=== PATIENT | male | born 1975 | race Caucasian/White ===

== ENCOUNTER 2017-01-16 17:58 | Emergency (ER) | payer OTHER ==
--- NOTE | 2017-01-16 18:30 | PHYS DOC ---
Past Medical History Past Medical History: Diabetes-Type II Adult General Chief Complaint Chief Complaint: UPPER EXTREMITY SWELLING [facility] HPI Patient is a 41 year old male presents to the emergency department with complaints of swelling to the left upper extremity. He states that 3 days ago he developed swelling over the distal tricep region, no known injury. He states that as the three-day period has progressed he has developed swelling to the wrist of the left upper extremity. He denies injury, denies numbness, tingling, radiation of pain, he states that he has range of motion limited secondary to the swelling but notes it is not painful. Patient states that he was seen at the urgent care Center and advised to come to the emergency department for further evaluation and treatment. Patient reports he is a type II diabetic but has not been taking any medication since 2009. He states his initial diagnosis of type 2 diabetes was in 2003. Patient states he quit taking medicine 7 years ago because his doctor was in a dispute with . Patient states he has not followed up nor had medical treatment for his diabetes since that time. He denies dizziness, nausea , vomiting, polyuria, polydipsia, polyphagia. Review of Systems Review of Systems Constitutional: Denies fever or chills [] Eyes: Denies change in visual acuity, redness, or eye pain [] HENT: Denies nasal congestion or sore throat [] Respiratory: Denies cough or shortness of breath [] Cardiovascular: No additional information not addressed in HPI [] GI: Denies abdominal pain, nausea, vomiting, bloody stools or diarrhea [] : Denies dysuria or hematuria [] Musculoskeletal: Swelling left upper extremity Integument: Denies rash or skin lesions [] Neurologic: Denies headache, focal weakness or sensory changes [] Endocrine: Denies polyuria or polydipsia [] Physical Exam Physical Exam Constitutional: Well developed, well nourished, no acute distress, non-toxic appearance. [] HENT: Normocephalic, atraumatic, bilateral external ears normal, oropharynx moist, no oral exudates, nose normal. [] Neck: Normal range of motion, no tenderness, supple, no stridor. [] Cardiovascular:Heart rate regular rhythm, no murmur [] Lungs & Thorax: Bilateral breath sounds clear to auscultation [] Skin: Atraumatic, Warm, dry, no erythema, no rash, no ecchymosis, no abrasions, no lesions. There is mild erythema and warmth over the olecranon and extending to the dorsal aspect of the mid forearm. Back: No tenderness, no CVA tenderness. [] Extremities: No tenderness, no cyanosis, no clubbing, ROM intact, swelling over the left mid tricep extending to the left wrist. There is mild erythema over the left olecranon extending to the dorsal aspect of the left forearm. Muscle strength is 5 over 5, DTRs 2 over 4. His neurovascular is intact distally. Distal radial and ulna pulse 2+. Neurologic: Alert and oriented X 3, normal motor function, normal sensory function, no focal deficits noted. [] Current Patient Data Lab Values Laboratory Tests Test 01/16/17 18:35 White Blood Count 9.9 x10^3/uL (4.0-11.0) Red Blood Count 4.73 x10^6/uL (4.30-5.70) Hemoglobin 14.7 g/dL (13.0-17.5) Hematocrit 42.6 % (39.0-53.0) Mean Corpuscular Volume 90 fL (79-100) Mean Corpuscular Hemoglobin 31 pg (25-35) Mean Corpuscular Hemoglobin Concent 35 g/dL (31-37) Red Cell Distribution Width 12.3 % (11.5-14.5) Platelet Count 259 x10^3/uL (140-400) Neutrophils (%) (Auto) 77 % (31-73) H Lymphocytes (%) (Auto) 15 % (24-48) L Monocytes (%) (Auto) 7 % (0-9) Eosinophils (%) (Auto) 1 % (0-3) Basophils (%) (Auto) 1 % (0-3) Neutrophils # (Auto) 7.6 x10^3uL (1.8-7.7) Lymphocytes # (Auto) 1.5 x10^3/uL (1.0-4.8) Monocytes # (Auto) 0.7 x10^3/uL (0.0-1.1) Eosinophils # (Auto) 0.1 x10^3/uL (0.0-0.7) Basophils # (Auto) 0.1 x10^3/uL (0.0-0.2) Sodium Level 138 mmol/L (136-145) Potassium Level 3.8 mmol/L (3.5-5.1) Chloride Level 100 mmol/L (98-107) Carbon Dioxide Level 26 mmol/L (21-32) Anion Gap 12 (6-14) Blood Urea Nitrogen 23 mg/dL (8-26) Creatinine 1.2 mg/dL (0.7-1.3) Estimated GFR (Cockcroft-Gault) 66.7 BUN/Creatinine Ratio 19 (6-20) Glucose Level 308 mg/dL (70-99) H Calcium Level 9.1 mg/dL (8.5-10.1) Total Bilirubin 0.6 mg/dL (0.2-1.0) Aspartate Amino Transferase (AST) 11 U/L (15-37) L Alanine Aminotransferase (ALT) 18 U/L (16-63) Alkaline Phosphatase 103 U/L (46-116) Total Protein 7.9 g/dL (6.4-8.2) Albumin 3.9 g/dL (3.4-5.0) Albumin/Globulin Ratio 1.0 (1.0-1.7) Laboratory Tests 01/16/17 18:35 Laboratory Tests 01/16/17 18:35 EKG EKG [] Radiology/Procedures Radiology/Procedures [[facility] [address] [place], [place] [id number] IMAGING REPORT Signed PATIENT: ISAEL POLLACK ACCOUNT: [id number] : 1975 LOCATION: ER AGE: 41 SEX: M EXAM STATUS: REG ER ORD. PHYSICIAN: NATALI EDWARDS APRN REASON: swelling PROCEDURE: VENOUS UPPER EXTREMITY LEFT Clinical indications: Left arm swelling and pain. Swelling started on Thursday 3 days ago. No known injury. Findings: Duplex sonography (including frank scale evaluation and color flow and waveform spectral analysis) of the inferior aspect of the left internal jugular vein was performed. Duplex sonography (including frank scale evaluation and color flow and waveform spectral analysis) of the left subclavian vein as far as it could be visualized prior to it's descent underneath the medial aspect of the clavicle was performed. Duplex sonography (including frank scale evaluation and color flow and waveform spectral analysis) of the left axillary, brachial, basilic, cephalic, ulnar and radial veins was performed. Normal compressibility and augmentation of color Doppler flow after forearm compression is seen. Color-flow completely fills the lumen of these veins. Therefore, there are no sonographic findings of deep venous thrombosis within these veins. Impression: There are no sonographic findings of deep venous thrombosis within the veins discussed above of the left upper extremity. Electronically signed by: Isael Robertson MD (01/16/2017 7:43 PM) DICTATED and SIGNED BY: ISAEL ROBERTSON MD DATE: 01/16/171939 CC: NO PCP; NON,STAFF; NATALI EDWARDS APRN ~ ] Course & Med Decision Making Course & Med Decision Making Case discussed with Dr. alie Ford whom is agreement with plan Pertinent Labs and Imaging studies reviewed. (See chart for details) [] Dragon Disclaimer Dragon Disclaimer This electronic medical record was generated, in whole or in part, using a voice recognition dictation system. Departure Departure Impression: Primary Impression: Cellulitis Additional Impression: Diabetes type 2, uncontrolled Disposition: 01 HOME, SELF-CARE Condition: STABLE Referrals: [facility] Physician list Patient Instructions: Cellulitis, Type 2 Diabetes Mellitus, Adult Scripts Amoxicillin/Potassium Clav (AUGMENTIN 875-125 TABLET) 1 Each Tablet 1 TAB PO BID, #20 TAB Prov: NATALI EDWARDS APRN 01/16/17 Problem Qualifiers NATALI EDWARDS APRN Jan 16, 2017 18:30
[2017-01-16 18:41] LABS: BASO # 0.1 x10^3/uL (0.0-0.2); BASO % 1 % (0-3); EOS % 1 % (0-3); HEMATOCRIT 42.6 % (39.0-53.0); HEMOGLOBIN 14.7 g/dL (13.0-17.5); LYMPH # 1.5 x10^3/uL (1.0-4.8); LYMPH % 15 % (24-48); MEAN CORPUSCULAR HEMOGLOBIN 31 pg (25-35); MEAN CORPUSCULAR HGB CONC 35 g/dL (31-37); MEAN CORPUSCULAR VOLUME 90 fL (79-100); MONO % 7 % (0-9); NEUT % 77 % (31-73); PLATELET COUNT 259 x10^3/uL (140-400); RED BLOOD COUNT 4.73 x10^6/uL (4.30-5.70); RED CELL DISTRIBUTION WIDTH 12.3 % (11.5-14.5); WHITE BLOOD COUNT 9.9 x10^3/uL (4.0-11.0)
[2017-01-16 18:53] LABS: CALCIUM 9.1 mg/dL (8.5-10.1); CREATININE 1.2 mg/dL (0.7-1.3); GFR 66.7; POTASSIUM 3.8 mmol/L (3.5-5.1)
[2017-01-16 18:59] LABS: ALBUMIN 3.9 g/dL (3.4-5.0); TOTAL BILIRUBIN 0.6 mg/dL (0.2-1.0); TOTAL PROTEIN 7.9 g/dL (6.4-8.2)
--- NOTE | 2017-01-16 19:46 | RAD ---
Clinical indications: Left arm swelling and pain. Swelling started on Thursday 3 days ago. No known injury. Findings: Duplex sonography (including frank scale evaluation and color flow and waveform spectral analysis) of the inferior aspect of the left internal jugular vein was performed. Duplex sonography (including frank scale evaluation and color flow and waveform spectral analysis) of the left subclavian vein as far as it could be visualized prior to it's descent underneath the medial aspect of the clavicle was performed. Duplex sonography (including frank scale evaluation and color flow and waveform spectral analysis) of the left axillary, brachial, basilic, cephalic, ulnar and radial veins was performed. Normal compressibility and augmentation of color Doppler flow after forearm compression is seen. Color-flow completely fills the lumen of these veins. Therefore, there are no sonographic findings of deep venous thrombosis within these veins. Impression: There are no sonographic findings of deep venous thrombosis within the veins discussed above of the left upper extremity. Electronically signed by: Uri Robertson MD (01/16/2017 7:43 PM)
[2017-01-16] MEDS ORDERED: AMOX1TAB61 PO (19:54)
== END 2017-01-16 20:08 | disposition home or self-care (01) ==
LOC: ER 17:58
DX: L03.114 Cellulitis of left upper limb (principal); E11.65 Type 2 diabetes mellitus with hyperglycemia
CPT/HCPCS: 36415; 80053; 85027; 93971; 99285-25

== ENCOUNTER 2017-09-22 15:09 | Emergency (ER) | payer OTHER ==
[2017-09-22] MEDS: IV NORMAL SALINE 1000ML BAG 1,000 ML IV ×2 (18:03)
[2017-09-22 18:06] LABS: ADD MAN DIFF? NO
[2017-09-22 18:10] LABS: BASO # 0.1 x10^3/uL (0.0-0.2); BASO % 1 % (0-3); EOS # 0.1 x10^3/uL (0.0-0.7); EOS % 1 % (0-3); HEMATOCRIT 37.1 % (39.0-53.0); HEMOGLOBIN 12.9 g/dL (13.0-17.5); LYMPH % 9 % (24-48); MEAN CORPUSCULAR HEMOGLOBIN 29 pg (25-35); MEAN CORPUSCULAR HGB CONC 35 g/dL (31-37); MEAN CORPUSCULAR VOLUME 85 fL (79-100); MONO # 0.7 x10^3/uL (0.0-1.1); MONO % 7 % (0-9); NEUT # 9.1 x10^3uL (1.8-7.7); NEUT % 83 % (31-73); PLATELET COUNT 249 x10^3/uL (140-400); RED BLOOD COUNT 4.38 x10^6/uL (4.30-5.70); RED CELL DISTRIBUTION WIDTH 14.3 % (11.5-14.5); WHITE BLOOD COUNT 10.9 x10^3/uL (4.0-11.0)
[2017-09-22 18:33] LABS: ANION GAP 12 (6-14); BLOOD UREA NITROGEN 9 mg/dL (8-26); BUN/CREATININE RATIO 13 (6-20); CALCIUM 9.8 mg/dL (8.5-10.1); CARBON DIOXIDE 27 mmol/L (21-32); CHLORIDE 97 mmol/L (98-107); CREATININE 0.7 mg/dL (0.7-1.3); GFR 124.3; GLUCOSE 246 mg/dL (70-99); POTASSIUM 3.9 mmol/L (3.5-5.1); SODIUM 136 mmol/L (136-145)
[2017-09-22 18:38] LABS: ALBUMIN 3.6 g/dL (3.4-5.0); ALBUMIN/GLOBULIN RATIO 0.9 (1.0-1.7); ALK PHOS 83 U/L (46-116); ALT (SGPT) 13 U/L (16-63); AST (SGOT) 13 U/L (15-37); TOTAL BILIRUBIN 0.3 mg/dL (0.2-1.0); TOTAL PROTEIN 7.4 g/dL (6.4-8.2)
[2017-09-22 18:39] LABS: TROPONINI < 0.017 ng/mL (0.000-0.055)
[2017-09-22 18:42] LABS: BILIRUBIN,URINE NEGATIVE (NEG); CLARITY,URINE CLEAR; GLUCOSE,URINE 100 mg/dL (NEG); NITRITE,URINE NEGATIVE (NEG); PH,URINE 5.5; PROTEIN,URINE NEGATIVE (NEG-TRACE); UROBILINOGEN,URINE 0.2 mg/dL (0.2 mg/dL)
[2017-09-22 18:49] LABS: COLOR,URINE STRAW
[2017-09-22 18:52] LABS: RBC,URINE RARE /HPF (0-2)
[2017-09-22 18:53] LABS: BACTERIA,URINE 0 /HPF (0-FEW); SQUAMOUS EPITHELIAL CELL,UR OCC /LPF; WBC,URINE 0 /HPF (0-4)
[2017-09-22 19:26] LABS: POC GLUCOSE 189 mg/dL (70-99)
[2017-09-22] MEDS ORDERED: INSULIN ASPART 100 UNIT/ML 10ML VIAL. SQ ×2 (19:45)
[2017-09-22] MEDS ORDERED: INSULIN ASPART 300 UNITS/3 ML INSULN.PEN SQ ×2 (19:45)
[2017-09-22] MEDS: INSULIN ASPART 300 UNITS/3 ML INSULN.PEN SQ ×2 (20:07)
[2017-09-24 09:01] LABS: POC GLUCOSE 353 mg/dL (70-99)
== END 2017-09-22 20:13 | disposition home or self-care (01) ==
LOC: ER 15:09
DX: E11.65 Type 2 diabetes mellitus with hyperglycemia (principal); E11.621 Type 2 diabetes mellitus with foot ulcer; L97.521 Non-pressure chronic ulcer of other part of left foot limited to breakdown of skin; Z89.511 Acquired absence of right leg below knee
CPT/HCPCS: 36415; 80053; 81001; 82962; 84484; 85025; 93005; 96360; 96372; 99285-25; J1815; J7030

== ENCOUNTER 2018-11-12 01:32 | Inpatient (IN) | payer OTHER ==
[~2018-11-12] VITALS: Ht 172.7 cm; Wt 67.1 kg
[2018-11-12] VITALS (17 sets, daily range): BP systolic 117–158; BP diastolic 66–88
[~2018-11-12 01:32] MED LIST: AMOX1TAB61 PO; CEPH-263 PO; DOXY100C2 PO; INSU100V13 SQ; INSU100V31 SQ
[2018-11-12] MEDS ORDERED: IV NORMAL SALINE 1000ML BAG 1,000 ML IV ONE ×3 (01:45→04:00)
[2018-11-12 01:56] LABS: BASO % 0 % (0-3); EOS % 0 % (0-3); HEMATOCRIT 39.3 % (39.0-53.0); HEMOGLOBIN 13.4 g/dL (13.0-17.5); LYMPH # 0.6 x10^3/uL (1.0-4.8); LYMPH % 5 % (24-48); MEAN CORPUSCULAR HEMOGLOBIN 30 pg (25-35); MEAN CORPUSCULAR HGB CONC 34 g/dL (31-37); MEAN CORPUSCULAR VOLUME 90 fL (79-100); MONO # 0.2 x10^3/uL (0.0-1.1); MONO % 2 % (0-9); NEUT # 12.2 x10^3uL (1.8-7.7); NEUT % 93 % (31-73); PLATELET COUNT 229 x10^3/uL (140-400); RED BLOOD COUNT 4.39 x10^6/uL (4.30-5.70); RED CELL DISTRIBUTION WIDTH 12.7 % (11.5-14.5); WHITE BLOOD COUNT 13.1 x10^3/uL (4.0-11.0)
[2018-11-12 02:06] LABS: PROTHROMBIN TIME PATIENT 12.6 SEC (11.7-14.0)
[2018-11-12 02:12] LABS: CALCIUM 9.2 mg/dL (8.5-10.1); CREATININE 0.9 mg/dL (0.7-1.3); GFR 92.5; POTASSIUM 3.7 mmol/L (3.5-5.1); TOTAL BILIRUBIN 0.2 mg/dL (0.2-1.0); TOTAL PROTEIN 7.9 g/dL (6.4-8.2)
--- NOTE | 2018-11-12 02:28 | RAD ---
CT Head W/O Contrast: History: SYNCOPE Comparison: none Axial images were obtained without contrast. The frank and white matter appears normal and symmetrical for the patients age. There is no mass effect, extraaxial fluid collections or hydrocephalus. There is no gross bleed. There is no focal loss of frank-white matter distinction to suggest acute ischemia, i.e. stroke. Impression: No acute findings. [facility] Compliance Statement: One or more of the following individualized dose reduction techniques were utilized for this examination: 1. Automated exposure control 2. Adjustment of the mA and/or kV according to patient size 3. Use of iterative reconstruction technique Electronically signed by: William Davies III, MD (11/12/2018 2:25 AM) [facility]
[2018-11-12] MEDS ORDERED: fentaNYL PF VIAL 100 MCG/2 ML VIAL IV PRN (02:30)
[2018-11-12] MEDS ORDERED: HEPARIN for IV BOLUS 10,000 UNIT/10 ML VIAL. IV ONE (02:30)
[2018-11-12] MEDS ORDERED: DEXTROSE 50% 25 GM / 50ML DISP.SYRIN. IV PRN ×2 (02:30→13:30)
[2018-11-12] MEDS ORDERED: ONDANSETRON PF 4 MG/2 ML VIAL. IV PRN (02:30)
[2018-11-12] MEDS ORDERED: HEPARIN 25,000UTS/500ML PREMIX 500 ML IV PRN (02:30)
--- NOTE | 2018-11-12 02:41 | RAD ---
CHEST AP ONLY Clinical History: SYNCOPE, CHEST PAIN Technique: AP view of the chest was obtained at 11/12/2018 2:17 AM. Comparison: None. Findings: The cardiomediastinal silhouette is normal. The pulmonary vasculature is normal. The lungs and pleural margins are clear. Impression: No evidence of an acute cardiopulmonary process. Electronically signed by: William Davies III, MD (11/12/2018 2:37 AM) [facility]
--- NOTE | 2018-11-12 02:50 | PHYS DOC ---
Past Medical History Past Medical History: Diabetes-Type II Additional Past Medical Histor: uncontrolled Past Surgical History: Other Additional Past Surgical Histo: dental, R) BKA. Additional Information: Nonsmoker Alcohol Use: None Drug Use: None Adult General Chief Complaint Chief Complaint: OTHER COMPLAINTS HPI HPI Patient is a 42 year old male who presents after syncopal episode via EMS. States this evening he was getting up to get something to eat and became very lightheaded and nauseous and passed out. He was unsure if he hit his head when he came to easily on the floor. He decided to call EMS to be evaluated in the hospital. He denies any pain at this time. Patient also denies any chest pain, shortness of breath, nausea, or vomiting.[] Review of Systems Review of Systems Constitutional: Denies fever or chills [] Eyes: Denies redness, or eye pain [] HENT: Denies nasal congestion or sore throat [] Respiratory: Denies cough or shortness of breath [] Cardiovascular: Denies chest pain or palpitations[] GI: Denies abdominal pain, nausea, vomiting, or diarrhea [] : Denies dysuria or hematuria [] Musculoskeletal: Denies back pain or joint pain [] Integument: Denies rash or skin lesions [] Neurologic: Denies headache, focal weakness; reports dizziness Complete systems were reviewed and found to be within normal limits, except as documented in this note. Current Medications Current Medications Current Medications Medications (Trade) Dose Ordered Sig/Flora Start Time Stop Time Status Last Admin Dose Admin Sodium Chloride 1,000 ml @ 1,000 mls/hr 1X ONCE 11/12/18 01:45 11/12/18 02:44 DC 11/12/18 02:08 1,000 MLS/HR Allergies Allergies Allergies Coded Allergies Type Severity Reaction Last Updated Verified No Known Drug Allergies 07/10/17 No Physical Exam Physical Exam Constitutional: No acute distress, non-toxic appearance, diaphoretic. [] HENT: Normocephalic, atraumatic, oropharynx moist, no oral exudates. [] Eyes: EOMI, conjunctiva normal, no discharge. [] Neck: Normal range of motion, no tenderness. [] Cardiovascular: Heart rate regular rhythm, no murmur [] Lungs & Thorax: Bilateral breath sounds clear to auscultation [] Abdomen: Soft, no tenderness, no rebound rigidity or guarding. [] Skin: Warm, dry, ulcer on right patella from Prosthesis. [] Back: No tenderness, no CVA tenderness. [] Extremities: No tenderness, no cyanosis, right BKA. [] Neurologic: Alert and oriented X 3, normal motor function, no focal deficits noted. [] Psychologic: Affect normal, mood normal. [] Current Patient Data Vital Signs Vital Signs Date Time Temp Pulse Resp B/P (MAP) Pulse Ox O2 Delivery O2 Flow Rate FiO2 11/12/18 01:32 93.2 81 18 158/89 (112) 98 Room Air 93.2 Lab Values Laboratory Tests Test 11/12/18 01:40 11/12/18 02:02 White Blood Count 13.1 x10^3/uL (4.0-11.0) H Red Blood Count 4.39 x10^6/uL (4.30-5.70) Hemoglobin 13.4 g/dL (13.0-17.5) Hematocrit 39.3 % (39.0-53.0) Mean Corpuscular Volume 90 fL (79-100) Mean Corpuscular Hemoglobin 30 pg (25-35) Mean Corpuscular Hemoglobin Concent 34 g/dL (31-37) Red Cell Distribution Width 12.7 % (11.5-14.5) Platelet Count 229 x10^3/uL (140-400) Neutrophils (%) (Auto) 93 % (31-73) H Lymphocytes (%) (Auto) 5 % (24-48) L Monocytes (%) (Auto) 2 % (0-9) Eosinophils (%) (Auto) 0 % (0-3) Basophils (%) (Auto) 0 % (0-3) Neutrophils # (Auto) 12.2 x10^3uL (1.8-7.7) H Lymphocytes # (Auto) 0.6 x10^3/uL (1.0-4.8) L Monocytes # (Auto) 0.2 x10^3/uL (0.0-1.1) Eosinophils # (Auto) 0.0 x10^3/uL (0.0-0.7) Basophils # (Auto) 0.0 x10^3/uL (0.0-0.2) Prothrombin Time 12.6 SEC (11.7-14.0) Prothrombin Time INR 1.0 (0.8-1.1) PTT 35 SEC (24-38) Sodium Level 144 mmol/L (136-145) Potassium Level 3.7 mmol/L (3.5-5.1) Chloride Level 105 mmol/L (98-107) Carbon Dioxide Level 27 mmol/L (21-32) Anion Gap 12 (6-14) Blood Urea Nitrogen 23 mg/dL (8-26) Creatinine 0.9 mg/dL (0.7-1.3) Estimated GFR (Cockcroft-Gault) 92.5 BUN/Creatinine Ratio 26 (6-20) H Glucose Level 176 mg/dL (70-99) H Lactic Acid Level 2.1 mmol/L (0.4-2.0) H Calcium Level 9.2 mg/dL (8.5-10.1) Magnesium Level 2.0 mg/dL (1.8-2.4) Total Bilirubin 0.2 mg/dL (0.2-1.0) Aspartate Amino Transferase (AST) 25 U/L (15-37) Alanine Aminotransferase (ALT) 30 U/L (16-63) Alkaline Phosphatase 70 U/L (46-116) Creatine Kinase 106 U/L (39-308) Creatine Kinase MB (Mass) 2.5 ng/mL (0.0-3.6) Creatine Kinase MB Relative Index 2.4 % (0-4) Troponin I Quantitative < 0.017 ng/mL (0.000-0.055) UR-Xfu-B-Type Natriuretic Peptide 351 pg/mL (0-124) H Total Protein 7.9 g/dL (6.4-8.2) Albumin 4.0 g/dL (3.4-5.0) Albumin/Globulin Ratio 1.0 (1.0-1.7) Lipase 73 U/L (73-393) Glucose (Fingerstick) 201 mg/dL (70-99) H Laboratory Tests 11/12/18 01:40 Laboratory Tests 11/12/18 01:40 EKG EKG @0149 NSR at 80bpm, Slight ST elevation in V1-V3 with deep t wave inversions in V3-V6= findings suspicious for Wellen's syndrome Compared to prior EKG from 09/22/17 which did not demonstrate same, baseline artifact in V3 @0406 NSR at 90bpm, ST depression V4, improved ST elevation V2-V3, t wave inversion V4-5 Radiology/Procedures Radiology/Procedures PROCEDURE: CHEST AP ONLY CHEST AP ONLY Clinical History: SYNCOPE, CHEST PAIN Technique: AP view of the chest was obtained at 11/12/2018 2:17 AM. Comparison: None. Findings: The cardiomediastinal silhouette is normal. The pulmonary vasculature is normal. The lungs and pleural margins are clear. Impression: No evidence of an acute cardiopulmonary process. Electronically signed by: Kip Arredondo III, MD (11/12/2018 2:37 AM) [place] [id number] DICTATED and SIGNED BY: KIP ARREDONDO III, MD PROCEDURE: CT HEAD WO CONTRAST CT Head W/O Contrast: History: SYNCOPE Comparison: none Axial images were obtained without contrast. The frank and white matter appears normal and symmetrical for the patients age. There is no mass effect, extraaxial fluid collections or hydrocephalus. There is no gross bleed. There is no focal loss of frank-white matter distinction to suggest acute ischemia, i.e. stroke. Impression: No acute findings. [facility] Compliance Statement: One or more of the following individualized dose reduction techniques were utilized for this examination: 1. Automated exposure control 2. Adjustment of the mA and/or kV according to patient size 3. Use of iterative reconstruction technique Electronically signed by: Kip Arredondo III, MD (11/12/2018 2:25 AM) [place] [id number] DICTATED and SIGNED BY: KIP ARREDONDO III, MD[] Course & Med Decision Making Course & Med Decision Making 42 year old male presented to the emergency department after syncopal episode. EMS original call was concerning for ST elevation on EKG. 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 Additionally, patient was found to be hypothermic upon arrival. Labs and imaging were posted to chart. Pertinent labs and imaging studies were reviewed. Symptomatic treatment provided with interval improvement. Discussed case with Dr. De La Rosa (boom man) who also reviewed EKG and he agreed with the patient for further evaluation tomorrow. Recommends heparin initiation. CXR and CT head without acute process. IVF hydration given. Lactic acid noted to be elevated. SIRS criteria met with hypothermia and elevated WBC. NO focal signs of infection. Patient does have wound to right anterior knee. Empiric Zosyn given. IVF boluses 30mg/kg given. Patient requiring admission for further evaluation and treatment. Discussed with Dr. Chang (hospitalist) who is in agreement with admission. Discussed findings and plan with patient, who acknowledges understanding and agreement. [] Dragon Disclaimer Dragon Disclaimer This electronic medical record was generated, in whole or in part, using a voice recognition dictation system. Departure Departure Impression: Primary Impression: Syncope Additional Impressions: Hypothermia Lactic acidosis Abnormal EKG Disposition: ADMITTED INPATIENT Admitting Physician: Other (Bernardo) Condition: GUARDED Referrals: MICHELLE LAUGHLIN MD (PCP) Critical Care Time Critical care time was 30 minutes which includes time at bedside, spent in discussion of patient's care with specialists and/or family members, with interpretation of laboratory and/or radiological studies and is exclusive of procedures. Problem Qualifiers Primary Impression: Syncope Syncope type: unspecified Qualified Codes: R55 - Syncope and collapse Additional Impressions: Hypothermia Encounter type: initial encounter Qualified Codes: T68.XXXA - Hypothermia, initial encounter CLAYTON GARRETT DO Nov 12, 2018 02:50
[2018-11-12 03:20] LABS: BILIRUBIN,URINE NEGATIVE (NEG); CLARITY,URINE CLEAR; COLOR,URINE YELLOW; NITRITE,URINE NEGATIVE (NEG); PROTEIN,URINE 100 mg/dL (NEG-TRACE); UROBILINOGEN,URINE 0.2 mg/dL (0.2 mg/dL)
[2018-11-12 03:30] LABS: BACTERIA,URINE 0 /HPF (0-FEW); RBC,URINE 0 /HPF (0-2)
[2018-11-12 03:31] LABS: HYALINE CASTS, URINE FEW /HPF; SQUAMOUS EPITHELIAL CELL,UR OCC /LPF
[2018-11-12] MEDS ORDERED: IV NORMAL SALINE 500ML BAG 500 ML IV ONE (04:00)
[2018-11-12] MEDS ORDERED: PIPERACILLIN/TAZOBACTAM 4.5 GM in IV NORMAL SALINE 100ML 100 ML IV ONE (04:15)
[2018-11-12 05:37] LABS: % BANDS 4 % (0-9); % LYMPHS 2 % (24-48); % MONOS 1 % (0-10); % SEGS 93 % (35-66); PLT ESTIMATE ADEQUATE (ADEQUATE)
[2018-11-12 05:38] LABS: TOXIC GRANULATION SLIGHT
[2018-11-12] MEDS ORDERED: GABA100C6 PO (05:49)
[2018-11-12] MEDS ORDERED: HEPARIN for IV BOLUS 10,000 UNIT/10 ML VIAL. IV PRN (07:45)
[2018-11-12] MEDS: INSULIN LISPRO 300 UNITS/3 ML INSULN.PEN. SQ SCH ×4 (08:00→17:40)
--- NOTE | 2018-11-12 08:18 | PDOC1 ---
History and Physical Date of Admission Date of Admission DATE: 11/12/18 TIME: 08:15 Identification/Chief Complaint Chief Complaint Syncope Source Source: Patient History of Present Illness History of Present Illness Patient is a 42 year old male w/ PMHx DM1, s/p R BKA who presents after syncopal episode via EMS. States this evening he was getting up to get something to eat and became very lightheaded and nauseous and passed out. He was unsure if he hit his head when he came to easily on the floor. He decided to call EMS to be evaluated in the hospital. He denies any pain at this time. Patient also denies any chest pain, shortness of breath, nausea, or vomiting. At 6PM and gave himself 7U of novolog. He then prepared some snack close to 8 PM and gave himself his 26U of levemir but sitting before he was getting ready to eat his snack he became diaphoretic and find himself that he passed out sitting on his recliner. He was shaky upon waking consistent with prior hypoglycemic episodes, so he ate 2 glucose tabs. BG was 131 but that was after the glucose tabs. When he arrived in ED he was mildly hypothermic at 93F. He has significant family hx of premature heart CAD with mother having WI in her 50s, Father at a young age as well and his cousin having SCA in his 40s and maternal grandfather dying of CAD. No hx of bleeding or problems Past Medical History Cardiovascular: HTN Pulmonary: No pertinent hx GI: No pertinent hx Heme/Onc: No pertinent hx Hepatobiliary: No pertinent hx Psych: No pertinent hx Musculoskeletal: Other (R BKA) Rheumatologic: No pertinent hx Infectious disease: No pertinent hx ENT: No pertinent hx Renal/: No pertinent hx Endocrine: Diabetes Dermatology: No pertinent hx Past Surgical History Past Surgical History: Other (R BKA) Family History Family History: Coronary Artery Disease (CAD in mother, maternal grandfather, maternal cousin at age42), Heart Disease, High Cholestrol Social History Smoke: No ALCOHOL: none Drugs: None Current Problem List Problem List Problems Medical Problems: (1) Abnormal EKG Status: Acute (2) Hypothermia Status: Acute (3) Lactic acidosis Status: Acute (4) Syncope Status: Acute Current Medications Current Medications Current Medications Sodium Chloride 1,000 ml @ 1,000 mls/hr 1X ONCE IV Last administered on at 02:08; Start 11/12/18 at 01:45; Stop 11/12/18 at 02:44; Status DC Heparin Sodium/ Dextrose 500 ml @ 0 mls/hr CONT PRN IV SEE I/O RECORD Last administered on 11/12/18at 03:11; Start 11/12/18 at 02:30 Heparin Sodium (Porcine) (Heparin Sodium) 4,000 unit 1X ONCE IV Last administered on 11/12/18at 03:04; Start 11/12/18 at 02:30; Stop 11/12/18 at 02:31; Status DC Ondansetron HCl (Zofran) 4 mg PRN Q8HRS PRN IV NAUSEA/VOMITING; Start 11/12/18 at 02:30; Stop 11/13/18 at 02:29 Fentanyl Citrate (Fentanyl 2ml Vial) 50 mcg PRN Q2HR PRN IV PAIN; Start at 02:30 Insulin Human Lispro (HumaLOG) 0-5 UNITS TIDWMEALS SQ ; Start 11/12/18 at 08:00 Dextrose (Dextrose 50%-Water Syringe) 12.5 gm PRN Q15MIN PRN IV SEE COMMENTS; Start 11/12/18 at 02:30 Sodium Chloride 1,000 ml @ 1,000 mls/hr 1X ONCE IV Last administered on at 03:55; Start 11/12/18 at 04:00; Stop 11/12/18 at 04:00; Status DC Piperacillin Sod/ Tazobactam Sod 4.5 gm/Sodium Chloride 100 ml @ 200 mls/hr 1X ONCE IV Last administered on 11/12/18at 04:33; Start 11/12/18 at 04:15; Stop 11/12/18 at 04:44; Status DC Sodium Chloride 1,000 ml @ 1,000 mls/hr 1X ONCE IV Last administered on at 04:32; Start 11/12/18 at 04:00; Stop 11/12/18 at 04:59; Status DC Sodium Chloride 500 ml @ 500 mls/hr 1X ONCE IV ; Start 11/12/18 at 04:00; Stop 11/12/18 at 04:59; Status DC Heparin Sodium (Porcine) (Heparin Sodium) 1,700 unit PRN Q6HRS PRN IV FOR UFH LEVEL LESS THAN 0.2; Start 11/12/18 at 07:45 Active Scripts Active Keflex (Cephalexin) 250 Mg Capsule 1 Cap PO QID 14 Days Doxycycline Hyclate 100 Mg Capsule 1 Cap PO BID 14 Days Levemir (Insulin Detemir) 100 Unit/1 Ml Vial 24 Unit SQ QHS Novolog (Insulin Aspart) 100 Unit/1 Ml Vial 100 Unit SQ DIRECTED sliding scale per patient's primary care physician Augmentin 875-125 Tablet (Amoxicillin/Potassium Clav) 1 Each Tablet 1 Tab PO BID Reported Gabapentin 100 Mg Capsule 100 Mg PO TID Allergies Allergies: Coded Allergies: No Known Drug Allergies (Unverified , 07/10/17) ROS General: YES: Fatigue, Malaise, Appetite; No: Chills, Night Sweats, Other PSYCHOLOGICAL ROS: No: Anxiety, Behavioral Disorder, Concentration difficultie , Decreased libido, Depression, Disorientation, Hallucinations, Hostility, Irritablity, Memory difficulties, Mood Swings, Obsessive thoughts, Physical abuse, Sexual abuse, Sleep disturbances, Suicidal ideation, Other Eyes: No Blurry vision, No Decreased vision, No Double vision, No Dry eyes, No Excessive tearing, No Eye Pain, No Itchy Eyes, No Loss of vision, No Photophobia , No Scotomata, No Uses contacts, No Uses glasses, No Other HEENT: No: Heacaches, Visual Changes, Hearing change, Nasal congestion, Nasal discharge, Oral lesions, Sinus pain, Sore Throat, Epistaxis, Sneezing, Snoring, Tinnitus, Vertigo, Vocal changes, Other ALLERGY AND IMMUNOLOGY: No: Hives, Insect Bite Sensitivity, Itchy/Watery Eyes, Nasal Congestion, Post Nasal Drip, Seasonal Allergies, Other Hematological and Lymphatic: No: Bleeding Problems, Blood Clots, Blood Transfusions, Brusing, Night Sweats, Pallor, Swollen Lymph Nodes, Other ENDOCRINE: No: Breast Changes, Galactorrhea, Hair Pattern Changes, Hot Flashes , Malaise/lethargy, Mood Swings, Palpitations, Polydipsia/polyuria, Skin Changes , Temperature Intolerance, Unexpected Weight Changes, Other Breast: No New/Changing Breast Lumps, No Nipple changes, No Nipple discharge, No Other Respiratory: No: Cough, Hemoptysis, Orthopnea, Pleuritic Pain, Shortness of breath, SOB with excertion, Sputum Changes, Stridor, Tachypnea, Wheezing, Other Cardiovascular: yes Chest Pain; No Palpitations, No Orthopnea, No Paroxysmal Noc. Dyspnea, No Edema, No Lt Headedness, No Other Gastrointestinal: No Nausea, No Vomiting, No Abdominal Pain, No Diarrhea, No Constipation, No Melena, No Hematochezia, No Other Genitourinary: No Dysuria, No Frequency, No Incontinence, No Hematuria, No Retention, No Discharge, No Urgency, No Pain, No Flank Pain, No Other, No , No , No , No , No , No , No Musculoskeletal: No Gait Disturbance, No Joint Pain, No Joint Stiffness, No Joint Swelling, No Muscle Pain, No Muscular Weakness, No Pain In:, No Swelling In:, No Other Neurological: No Behavorial Changes, No Bowel/Bladder ControlChng, No Confusion , No Dizziness, No Gait Disturbance, No Headaches, No Impaired Coord/balance, No Memory Loss, No Numbness/Tingling, No Seizures, No Speech Problems, No Tremors, No Visual Changes, No Weakness, No Other Skin: No Dry Skin, No Eczema, No Hair Changes, No Lumps, No Mole Changes, No Mottling, No Nail Changes, No Pruritus, No Rash, No Skin Lesion Changes, No Other, No Acne Physical Exam General: Alert, Oriented X3, Cooperative, No acute distress HEENT: Atraumatic, PERRLA, EOMI, Mucous membr. moist/pink Lungs: Clear to auscultation, Normal air movement Abdomen: Normal bowel sounds, Soft, No tenderness, No hepatosplenomegaly, No masses Male Genitals Exam: normal genitalia, normal prostate Rectal Exam: not examined Extremities: No clubbing, No cyanosis, No edema, Normal pulses, No tenderness/ swelling, Other (r BKA ulcer at knee) Skin: No rashes, No significant lesion, Other (Right knee ulcer) Neuro: Normal gait, Normal speech, Strength at 5/5 X4 ext, Normal tone, Sensation intact, Cranial nerves 3-12 NL, Reflexes 2+ Psych/Mental Status: Mental status NL, Mood NL Vitals Vitals Vital Signs Date Time Temp Pulse Resp B/P (MAP) Pulse Ox O2 Delivery O2 Flow Rate FiO2 11/12/18 07:53 105 138/82 (100) 11/12/18 07:27 97.5 16 100 Room Air 97.5 Labs Labs Laboratory Tests Test 11/12/18 01:40 11/12/18 02:02 11/12/18 02:59 11/12/18 05:00 White Blood Count 13.1 x10^3/uL (4.0-11.0) Red Blood Count 4.39 x10^6/uL (4.30-5.70) Hemoglobin 13.4 g/dL (13.0-17.5) Hematocrit 39.3 % (39.0-53.0) Mean Corpuscular Volume 90 fL (79-100) Mean Corpuscular Hemoglobin 30 pg (25-35) Mean Corpuscular Hemoglobin Concent 34 g/dL (31-37) Red Cell Distribution Width 12.7 % (11.5-14.5) Platelet Count 229 x10^3/uL (140-400) Neutrophils (%) (Auto) 93 % (31-73) Lymphocytes (%) (Auto) 5 % (24-48) Monocytes (%) (Auto) 2 % (0-9) Eosinophils (%) (Auto) 0 % (0-3) Basophils (%) (Auto) 0 % (0-3) Neutrophils # (Auto) 12.2 x10^3uL (1.8-7.7) Lymphocytes # (Auto) 0.6 x10^3/uL (1.0-4.8) Monocytes # (Auto) 0.2 x10^3/uL (0.0-1.1) Eosinophils # (Auto) 0.0 x10^3/uL (0.0-0.7) Basophils # (Auto) 0.0 x10^3/uL (0.0-0.2) Segmented Neutrophils % 93 % (35-66) Band Neutrophils % 4 % (0-9) Lymphocytes % 2 % (24-48) Monocytes % 1 % (0-10) Toxic Granulation Slight Platelet Estimate Adequate (ADEQUATE) Prothrombin Time 12.6 SEC (11.7-14.0) Prothromb Time International Ratio 1.0 (0.8-1.1) Activated Partial Thromboplast Time 35 SEC (24-38) Sodium Level 144 mmol/L (136-145) Potassium Level 3.7 mmol/L (3.5-5.1) Chloride Level 105 mmol/L (98-107) Carbon Dioxide Level 27 mmol/L (21-32) Anion Gap 12 (6-14) Blood Urea Nitrogen 23 mg/dL (8-26) Creatinine 0.9 mg/dL (0.7-1.3) Estimated GFR (Cockcroft-Gault) 92.5 BUN/Creatinine Ratio 26 (6-20) Glucose Level 176 mg/dL (70-99) Lactic Acid Level 2.1 mmol/L (0.4-2.0) 1.8 mmol/L (0.4-2.0) Calcium Level 9.2 mg/dL (8.5-10.1) Magnesium Level 2.0 mg/dL (1.8-2.4) Total Bilirubin 0.2 mg/dL (0.2-1.0) Aspartate Amino Transf (AST/SGOT) 25 U/L (15-37) Alanine Aminotransferase (ALT/SGPT) 30 U/L (16-63) Alkaline Phosphatase 70 U/L (46-116) Creatine Kinase 106 U/L (39-308) Creatine Kinase MB (Mass) 2.5 ng/mL (0.0-3.6) Creatine Kinase MB Relative Index 2.4 % (0-4) Troponin I Quantitative < 0.017 ng/mL (0.000-0.055) < 0.017 ng/mL (0.000-0.055) LK-Brw-K-Type Natriuretic Peptide 351 pg/mL (0-124) Total Protein 7.9 g/dL (6.4-8.2) Albumin 4.0 g/dL (3.4-5.0) Albumin/Globulin Ratio 1.0 (1.0-1.7) Lipase 73 U/L (73-393) Glucose (Fingerstick) 201 mg/dL (70-99) Urine Collection Type U cath Urine Color Yellow Urine Clarity Clear Urine pH 5.0 Urine Specific [place] 1.020 Urine Protein 100 mg/dL (NEG-TRACE) Urine Glucose (UA) Negative mg/dL (NEG) Urine Ketones (Stick) Negative mg/dL (NEG) Urine Blood Trace (NEG) Urine Nitrite Negative (NEG) Urine Bilirubin Negative (NEG) Urine Urobilinogen Dipstick 0.2 mg/dL (0.2 mg/dL) Urine Leukocyte Esterase Negative (NEG) Urine RBC 0 /HPF (0-2) Urine WBC 1-4 /HPF (0-4) Urine Squamous Epithelial Cells Occ /LPF Urine Bacteria 0 /HPF (0-FEW) Urine Hyaline Casts Few /HPF Urine Mucus Mod /LPF Test 11/12/18 07:08 Glucose (Fingerstick) 180 mg/dL (70-99) Laboratory Tests Test 11/12/18 01:40 11/12/18 02:02 11/12/18 02:59 11/12/18 05:00 White Blood Count 13.1 x10^3/uL (4.0-11.0) Red Blood Count 4.39 x10^6/uL (4.30-5.70) Hemoglobin 13.4 g/dL (13.0-17.5) Hematocrit 39.3 % (39.0-53.0) Mean Corpuscular Volume 90 fL (79-100) Mean Corpuscular Hemoglobin 30 pg (25-35) Mean Corpuscular Hemoglobin Concent 34 g/dL (31-37) Red Cell Distribution Width 12.7 % (11.5-14.5) Platelet Count 229 x10^3/uL (140-400) Neutrophils (%) (Auto) 93 % (31-73) Lymphocytes (%) (Auto) 5 % (24-48) Monocytes (%) (Auto) 2 % (0-9) Eosinophils (%) (Auto) 0 % (0-3) Basophils (%) (Auto) 0 % (0-3) Neutrophils # (Auto) 12.2 x10^3uL (1.8-7.7) Lymphocytes # (Auto) 0.6 x10^3/uL (1.0-4.8) Monocytes # (Auto) 0.2 x10^3/uL (0.0-1.1) Eosinophils # (Auto) 0.0 x10^3/uL (0.0-0.7) Basophils # (Auto) 0.0 x10^3/uL (0.0-0.2) Segmented Neutrophils % 93 % (35-66) Band Neutrophils % 4 % (0-9) Lymphocytes % 2 % (24-48) Monocytes % 1 % (0-10) Toxic Granulation Slight Platelet Estimate Adequate (ADEQUATE) Prothrombin Time 12.6 SEC (11.7-14.0) Prothromb Time International Ratio 1.0 (0.8-1.1) Activated Partial Thromboplast Time 35 SEC (24-38) Sodium Level 144 mmol/L (136-145) Potassium Level 3.7 mmol/L (3.5-5.1) Chloride Level 105 mmol/L (98-107) Carbon Dioxide Level 27 mmol/L (21-32) Anion Gap 12 (6-14) Blood Urea Nitrogen 23 mg/dL (8-26) Creatinine 0.9 mg/dL (0.7-1.3) Estimated GFR (Cockcroft-Gault) 92.5 BUN/Creatinine Ratio 26 (6-20) Glucose Level 176 mg/dL (70-99) Lactic Acid Level 2.1 mmol/L (0.4-2.0) 1.8 mmol/L (0.4-2.0) Calcium Level 9.2 mg/dL (8.5-10.1) Magnesium Level 2.0 mg/dL (1.8-2.4) Total Bilirubin 0.2 mg/dL (0.2-1.0) Aspartate Amino Transf (AST/SGOT) 25 U/L (15-37) Alanine Aminotransferase (ALT/SGPT) 30 U/L (16-63) Alkaline Phosphatase 70 U/L (46-116) Creatine Kinase 106 U/L (39-308) Creatine Kinase MB (Mass) 2.5 ng/mL (0.0-3.6) Creatine Kinase MB Relative Index 2.4 % (0-4) Troponin I Quantitative < 0.017 ng/mL (0.000-0.055) < 0.017 ng/mL (0.000-0.055) FS-Hla-Z-Type Natriuretic Peptide 351 pg/mL (0-124) Total Protein 7.9 g/dL (6.4-8.2) Albumin 4.0 g/dL (3.4-5.0) Albumin/Globulin Ratio 1.0 (1.0-1.7) Lipase 73 U/L (73-393) Glucose (Fingerstick) 201 mg/dL (70-99) Urine Collection Type U cath Urine Color Yellow Urine Clarity Clear Urine pH 5.0 Urine Specific [place] 1.020 Urine Protein 100 mg/dL (NEG-TRACE) Urine Glucose (UA) Negative mg/dL (NEG) Urine Ketones (Stick) Negative mg/dL (NEG) Urine Blood Trace (NEG) Urine Nitrite Negative (NEG) Urine Bilirubin Negative (NEG) Urine Urobilinogen Dipstick 0.2 mg/dL (0.2 mg/dL) Urine Leukocyte Esterase Negative (NEG) Urine RBC 0 /HPF (0-2) Urine WBC 1-4 /HPF (0-4) Urine Squamous Epithelial Cells Occ /LPF Urine Bacteria 0 /HPF (0-FEW) Urine Hyaline Casts Few /HPF Urine Mucus Mod /LPF Test 11/12/18 07:08 Glucose (Fingerstick) 180 mg/dL (70-99) Images Images CXR - No evidence of an acute cardiopulmonary process. VTE Prophylaxis Ordered VTE Prophylaxis Devices: No VTE Pharmacological Prophylaxi: Yes Assessment/Plan Assessment/Plan A/P: Syncope - likely 2/2 hypoglycemia, however he is high cardiac risk with wellen pattern on his EKG and strong family h/o CAD as well as DM poorly controlled. CT head negative Abnormal EKG - looks to be a wellens pattern concerning for LAD disease Hypothermia - resolved after rewarming protocol. Leukocytosis - no clear sign of infection, though he meets SIRS criteria IDDM with poor diet habits - needs A1c repeated Right knee patellar healed wound with callus - no induration, or signs of infection. Uses prosthetic leg. Will consult wound care FEN - NPO PPX - Heparin GTT FULL CODE DISPO - inpatient for what is high risk CAD, likely 2 midnights. 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 LULU SOLIS MD Nov 12, 2018 08:18
--- NOTE | 2018-11-12 08:26 | EKG ---
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
--- NOTE | 2018-11-12 08:26 | EKG ---
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
[2018-11-12] MEDS ORDERED: ASPIRIN ENTERIC COATED 325 MG TABLET.DR. PO ONE (08:30)
--- NOTE | 2018-11-12 08:46 | PDOC2 ---
MAXX GALLEGOS [employer] 11/12/18 0845: CARDIAC CONSULT DATE OF CONSULT Date of Consult DATE: 11/12/18 TIME: 08:27 REASON FOR CONSULT Reason for Consult: Syncope, abnormal EKG REFERRING PHYSICIAN Referring Physician: Carmine SOURCE Source: Chart review, Patient HISTORY OF PRESENT ILLNESS HISTORY OF PRESENT ILLNESS This is a pleasant 42 yo male admitted for complains of passing out. He thinks its from hypoglycemia. He is IDDM and has been for about 15 yrs. His diet has been erratic since he does not have significnat means financially to further comply with DM diet as he explains. He ate ramen noodles around 6PM and gave himself 7U of novolog. He then prepared some snack close to 8 PM and gave himself his 26U of levemir but sitting before he was getting ready to eat his snack he became diaphoretic and find himself that he passed out sitting on his recliner. He was shaky upon waking up but no signs of seizures. No bowel and bladder incontinece. Help was called and EMS noted his BG was 131 but that was after the glucose tabs. When he arrived in ED he was mildly hypothermic. He has not passed out in a long time. No fever or chills. No recent injury, falls , MVA. No past hx of VTE, arrhythmias. He does not take any BP meds, ASA, nor statin. He takes insluing and neuronting for regular meds. Denies past CAD but no heart testing either in the past except for TTE. Denies any chest pain or SOA both at rest and exertion. He has significant family hx of premature heart CAD with mother having MN in her 50s, Father at a young age as well and his cousin having SCA in his 40s. No hx of bleeding. PAST MEDICAL HISTORY Cardiovascular: No pertinent hx Pulmonary: Asthma (childhood) CENTRAL NERVOUS SYSTEM: Periperal neuropathy GI: No pertinent hx Heme/Onc: No pertinent hx Hepatobiliary: No pertinent hx Psych: No pertinent hx Musculoskeletal: Osteoarthritis Rheumatologic: No pertinent hx Infectious disease: No pertinent hx ENT: No pertinent hx Renal/: No pertinent hx Endocrine: Diabetes (type 1) Dermatology: No pertinent hx PAST SURGICAL HISTORY Past Surgical History: Other FAMILY HISTORY Family History: Coronary Artery Disease SOCIAL HISTORY Smoke: No ALCOHOL: none Drugs: None Lives: with Family (brother) CURRENT MEDICATIONS CURRENT MEDICATIONS Current Medications Medications (Trade) Dose Ordered Sig/Flora Route PRN Reason Start Time Stop Time Status Last Admin Dose Admin Sodium Chloride 1,000 ml @ 1,000 mls/hr 1X ONCE IV 11/12/18 01:45 11/12/18 02:44 DC 11/12/18 02:08 Heparin Sodium/ Dextrose 500 ml @ 0 mls/hr CONT PRN IV SEE I/O RECORD 11/12/18 02:30 11/12/18 03:11 Heparin Sodium (Porcine) (Heparin Sodium) 4,000 unit 1X ONCE IV 11/12/18 02:30 11/12/18 02:31 DC 11/12/18 03:04 Sodium Chloride 1,000 ml @ 1,000 mls/hr 1X ONCE IV 11/12/18 04:00 11/12/18 04:00 DC 11/12/18 03:55 Piperacillin Sod/ Tazobactam Sod 4.5 gm/Sodium Chloride 100 ml @ 200 mls/hr 1X ONCE IV 11/12/18 04:15 11/12/18 04:44 DC 11/12/18 04:33 Sodium Chloride 1,000 ml @ 1,000 mls/hr 1X ONCE IV 11/12/18 04:00 11/12/18 04:59 DC 11/12/18 04:32 ALLERGIES ALLERGIES: Coded Allergies: No Known Drug Allergies (Unverified , 07/10/17) ROS Review of System 14 point ROS evaluated with pertinent positives noted per HPI PHYSICAL EXAM General: Alert, Oriented X3, Cooperative, No acute distress HEENT: Atraumatic, Mucous membr. moist/pink Lungs: Clear to auscultation, Normal air movement Heart: Regular rate, Normal S1, Normal S2, Other (TIMI 2/6 diastolic murmur) Abdomen: Soft, No tenderness Extremities: No cyanosis, No edema Skin: No breakdown, No significant lesion Neuro: Normal speech, Sensation intact Psych/Mental Status: Mental status NL, Mood NL MUSCULOSKELETAL: Osteoarthritic changes both hands VITALS VITALS Vital Signs Date Time Temp Pulse Resp B/P (MAP) Pulse Ox O2 Delivery O2 Flow Rate FiO2 11/12/18 07:53 105 138/82 (100) 11/12/18 07:27 97.5 16 100 Room Air 97.5 LABS Lab: Laboratory Tests Test 11/12/18 01:40 11/12/18 02:02 11/12/18 02:59 11/12/18 05:00 White Blood Count 13.1 x10^3/uL (4.0-11.0) Red Blood Count 4.39 x10^6/uL (4.30-5.70) Hemoglobin 13.4 g/dL (13.0-17.5) Hematocrit 39.3 % (39.0-53.0) Mean Corpuscular Volume 90 fL (79-100) Mean Corpuscular Hemoglobin 30 pg (25-35) Mean Corpuscular Hemoglobin Concent 34 g/dL (31-37) Red Cell Distribution Width 12.7 % (11.5-14.5) Platelet Count 229 x10^3/uL (140-400) Neutrophils (%) (Auto) 93 % (31-73) Lymphocytes (%) (Auto) 5 % (24-48) Monocytes (%) (Auto) 2 % (0-9) Eosinophils (%) (Auto) 0 % (0-3) Basophils (%) (Auto) 0 % (0-3) Neutrophils # (Auto) 12.2 x10^3uL (1.8-7.7) Lymphocytes # (Auto) 0.6 x10^3/uL (1.0-4.8) Monocytes # (Auto) 0.2 x10^3/uL (0.0-1.1) Eosinophils # (Auto) 0.0 x10^3/uL (0.0-0.7) Basophils # (Auto) 0.0 x10^3/uL (0.0-0.2) Segmented Neutrophils % 93 % (35-66) Band Neutrophils % 4 % (0-9) Lymphocytes % 2 % (24-48) Monocytes % 1 % (0-10) Toxic Granulation Slight Platelet Estimate Adequate (ADEQUATE) Prothrombin Time 12.6 SEC (11.7-14.0) Prothromb Time International Ratio 1.0 (0.8-1.1) Activated Partial Thromboplast Time 35 SEC (24-38) Sodium Level 144 mmol/L (136-145) Potassium Level 3.7 mmol/L (3.5-5.1) Chloride Level 105 mmol/L (98-107) Carbon Dioxide Level 27 mmol/L (21-32) Anion Gap 12 (6-14) Blood Urea Nitrogen 23 mg/dL (8-26) Creatinine 0.9 mg/dL (0.7-1.3) Estimated GFR (Cockcroft-Gault) 92.5 BUN/Creatinine Ratio 26 (6-20) Glucose Level 176 mg/dL (70-99) Lactic Acid Level 2.1 mmol/L (0.4-2.0) 1.8 mmol/L (0.4-2.0) Calcium Level 9.2 mg/dL (8.5-10.1) Magnesium Level 2.0 mg/dL (1.8-2.4) Total Bilirubin 0.2 mg/dL (0.2-1.0) Aspartate Amino Transf (AST/SGOT) 25 U/L (15-37) Alanine Aminotransferase (ALT/SGPT) 30 U/L (16-63) Alkaline Phosphatase 70 U/L (46-116) Creatine Kinase 106 U/L (39-308) Creatine Kinase MB (Mass) 2.5 ng/mL (0.0-3.6) Creatine Kinase MB Relative Index 2.4 % (0-4) Troponin I Quantitative < 0.017 ng/mL (0.000-0.055) < 0.017 ng/mL (0.000-0.055) IS-Svn-K-Type Natriuretic Peptide 351 pg/mL (0-124) Total Protein 7.9 g/dL (6.4-8.2) Albumin 4.0 g/dL (3.4-5.0) Albumin/Globulin Ratio 1.0 (1.0-1.7) Lipase 73 U/L (73-393) Glucose (Fingerstick) 201 mg/dL (70-99) Urine Collection Type U cath Urine Color Yellow Urine Clarity Clear Urine pH 5.0 Urine Specific [place] 1.020 Urine Protein 100 mg/dL (NEG-TRACE) Urine Glucose (UA) Negative mg/dL (NEG) Urine Ketones (Stick) Negative mg/dL (NEG) Urine Blood Trace (NEG) Urine Nitrite Negative (NEG) Urine Bilirubin Negative (NEG) Urine Urobilinogen Dipstick 0.2 mg/dL (0.2 mg/dL) Urine Leukocyte Esterase Negative (NEG) Urine RBC 0 /HPF (0-2) Urine WBC 1-4 /HPF (0-4) Urine Squamous Epithelial Cells Occ /LPF Urine Bacteria 0 /HPF (0-FEW) Urine Hyaline Casts Few /HPF Urine Mucus Mod /LPF Test 11/12/18 07:08 Glucose (Fingerstick) 180 mg/dL (70-99) ASSESSMENT/PLAN ASSESSMENT/PLAN 1. Syncope: hypoglycemia is expected but possible underlying ischemia 2. Abnormal EKG: consistent of wellens syndrome with noted luekocytosis and mild lactic acidosis concerning of ischemia 3. Hypothermia: resolved after rewarming protocol. 4. IDDM with poor diet habits. 5. Right knee patellar healed wound with callus: no induration, or signs of infection. Uses prosthetic leg. 6. significant family hx of premature CAD and SCA Recommendations 1. Currently on heaprin drip. ASA 2. Lipids, TSH, Will check A1C. Consult dietitian. 3. TTE, and repeat EKG and troponin which is nml so far. 4. Ischemic workup in the form of LHC,, risks and benefits discussed and agreeable to proceed. LISA MOLINA MD 11/12/18 1225: CARDIAC CONSULT ASSESSMENT/PLAN ASSESSMENT/PLAN Patient seen and examined. Agree with CROZE CUTTER's assessment and plan. Syncope most probably secondary to hypoglycemia Telemetry did not show any significant arrhythmia so far EKG however showed ischemic changes Patient has significant family history of premature coronary artery disease We will proceed with cardiac catheterization and possible angioplasty Risks and benefits were explained and he is agreeable Thank you for your consultation MAXX GALLEGOS APRN Nov 12, 2018 08:45 LISA MOLINA MD Nov 12, 2018 12:25
[2018-11-12] MEDS ORDERED: IOHEXOL 300 MG/ML 100ML VIAL. ONE ×2 (08:58→10:14)
[2018-11-12] MEDS ORDERED: LIDOCAINE 1% PF 2 ML VIAL. ONE (08:58)
--- NOTE | 2018-11-12 09:03 | EKG ---
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
[2018-11-12] MEDS ORDERED: MIDAZOLAM HCL/PF 2 MG/2 ML VIAL. ONE (09:31)
[2018-11-12] MEDS ORDERED: fentaNYL PF VIAL 100 MCG/2 ML VIAL ONE (09:31)
--- NOTE | 2018-11-12 09:31 | CARD ---
MR#: [id number] Date of Study: 11/12/2018 Ordering Physician: MAXX GALLEGOS, Referring Physician: LULU SOLIS, Tech: Jorge Kohli APPROVED REPORT EXAM: Two-dimensional and M-mode echocardiogram with Doppler and color Doppler. Other Information Quality : GoodHR: 94bpm INDICATION Syncope 2D DIMENSIONS RVDd2.7 (2.9-3.5cm)Left Atrium(2D)3.5 (1.6-4.0cm) IVSd1.0 (0.7-1.1cm)Aortic Root(2D)3.3 (2.0-3.7cm) LVDd4.9 (3.9-5.9cm)LVOT Diameter2.3 (1.8-2.4cm) PWd1.1 (0.7-1.1cm)LVDs2.8 (2.5-4.0cm) FS (%) 42.3 %SV83.6 ml LVEF(%)73.2 (>50%) Aortic Valve AoV Peak [place].120.1cm/sAoV VTI24.1cm AO Peak GR.5.8mmHgLVOT VTI 17.68cm AO Mean GR.4mmHg Mitral Valve MV E Ibjmbgvi55.1cm/sMV DECEL [id number] MV A Srnobwgr72.3cm/sE/A Ratio1.1 TDI Lateral E' P. V10.36cm/sMedial E' P. V8.69cm/s E/Lateral E'9.4E/Medial E'11.2 Tricuspid Valve RAP [id number] Pulmonary Vein S1 Axktqyrj84.5cm/sS2 Aptzhbxp10.85cm/s D2 Tpoksdvb72.9cm/sPVa qmnmhbnk15shxb LEFT VENTRICLE The left ventricle is normal size. There is borderline concentric left ventricular hypertrophy. The l eft ventricular systolic function is normal. The Ejection Fraction is 60-65%. There is normal LV segm ental wall motion. Transmitral Doppler flow pattern is Grade II-pseudonormal filling dynamics. RIGHT VENTRICLE The right ventricle is normal size. There is normal right ventricular wall thickness. The right ventr icular systolic function is normal. ATRIA The left atrium size is normal. The right atrium size is normal. The interatrial septum is intact wit h no evidence for an atrial septal defect or patent foramen ovale as noted on 2-D or Doppler imaging. AORTIC VALVE The aortic valve is normal in structure and function. Doppler and Color Flow revealed no significant aortic regurgitation. There is no significant aortic valvular stenosis. MITRAL VALVE The mitral valve is normal in structure and function. There is no evidence of mitral valve prolapse. There is no mitral valve stenosis. Doppler and Color Flow revealed no mitral valve regurgitation note d. TRICUSPID VALVE The tricuspid valve is normal in structure and function. Doppler and Color Flow revealed no tricuspid valve regurgitation noted. There is no tricuspid valve stenosis. PULMONIC VALVE The pulmonary valve is normal in structure and function. Doppler and Color Flow revealed trace pulmon ic valvular regurgitation. GREAT VESSELS The aortic root is normal in size. The IVC is normal in size and collapses >50% with inspiration. PERICARDIAL EFFUSION There is no evidence of significant pericardial effusion. Critical Notification Critical Value: No <Conclusion> The left ventricular systolic function is normal. The Ejection Fraction is 60-65%. There is normal LV segmental wall motion. No significant valvular abnormalities. There is no evidence of significant pericardial effusion. Signed by : Obi Mcclellan, Electronically Approved : 11/12/2018 09:31:22
[2018-11-12] MEDS ORDERED: HEPARIN for IV BOLUS 10,000 UNIT/10 ML VIAL. ONE (09:32)
[2018-11-12] MEDS ORDERED: VERAPAMIL 5 MG/2 ML VIAL. ONE (09:32)
[2018-11-12] MEDS ORDERED: NITROGLYCERIN 200 MCG/2 ML SYRINGE FOR CATH/VASC LAB. ONE (09:32)
[2018-11-12] MEDS ORDERED: BIVALIRUDIN 250 MG VIAL. IV ONE ×2 (10:14→10:30)
[2018-11-12] MEDS ORDERED: NITROGLYCERIN 200 MCG/2 ML SYRINGE FOR CATH/VASC LAB. IART ONE (10:30)
[2018-11-12] MEDS ORDERED: HEPARIN for IV BOLUS 10,000 UNIT/10 ML VIAL. IART ONE (10:30)
[2018-11-12] MEDS ORDERED: MIDAZOLAM HCL/PF 2 MG/2 ML VIAL. IV ONE (10:30)
[2018-11-12] MEDS ORDERED: IOHEXOL 300 MG/ML 100ML VIAL. IART ONE (10:30)
[2018-11-12] MEDS ORDERED: LIDOCAINE 1% PF 2 ML VIAL. INJ ONE (10:30)
[2018-11-12] MEDS ORDERED: VERAPAMIL 5 MG/2 ML VIAL. IART ONE (10:30)
[2018-11-12] MEDS ORDERED: fentaNYL PF VIAL 100 MCG/2 ML VIAL IV ONE (10:30)
[2018-11-12] MEDS ORDERED: CONTRAST GIVEN. MC PRN (10:45)
[2018-11-12] MEDS ORDERED: ASPIRIN 325 MG TABLET ONE (11:03)
[2018-11-12] MEDS ORDERED: PRASUGREL 10 MG TABLET. ONE (11:03)
[2018-11-12] MEDS ORDERED: ASPIRIN 325 MG TABLET PO ONE (11:15)
[2018-11-12] MEDS ORDERED: PRASUGREL 10 MG TABLET. PO ONE (11:15)
--- NOTE | 2018-11-12 11:23 | PDOC ---
MODERATE SEDATION ASSESSMENT RISKS/ALTERNATIVES Risks/Alternatives Risks and alternatives of this type of sedation and procedure discussed with: RISK/ALTERNATIVES: Patient H & P ON CHART H & P H & P on chart and reviewed for co-morbid conditions and appropriate labs. H&P ON CHART: Yes STATUS PREG STATUS ASSESSED: N/A MEDS/ALLERGIES REVIEWED Meds/Allergies Reviewed Medications and Allergies including time and route of recently administered narcotics and sedatives. MEDS/ALLERGIES REVIEWED: Yes ASA RATING ASA RATING: III AIRWAY ASSESSMENT Airway Assessment Airway patency, oral function limitations, presence of caps, crowns, dentures, partials, and ability to extend neck assessed. AIRWAY ASSESSMENT: Yes MALLAMPATI SCORE MALLAMPATI SCORE: II PRE-SEDATION ASSESSMENT PRE-SEDATION ASSESSMENT: Yes LISA MOLINA MD Nov 12, 2018 11:23
[2018-11-12] MEDS ORDERED: ACETAMINOPHEN 325 MG TABLET. PO PRN (11:30)
[2018-11-12] MEDS ORDERED: NITROGLYCERIN SUBLINGUAL 0.4 MG BOTTLE OF 25. SL PRN (11:30)
--- NOTE | 2018-11-12 12:08 | CARD ---
MR#: [id number] Date of Study: 11/12/2018 Ordering Physician: MAXX GALLEGOS, Referring Physician: LULU SOLIS, Tech: ROSEMARY HOYT RTR APPROVED REPORT Technologist: ROSEMARY HOYT RTR Nurse: Parvin Plummer R.N. Procedure(s) performed: 1. Left heart catheterization, selective coronary angiography and left ventr iculography via right transradial approach 2. Successful PCI/drug eluting stents placement to the left anterior descending artery, left circumf kyara artery and obtuse marginal branch. Moderate sedationo:86 mins Fluoro time: 28.1 MIN Dose: 134 GYCM2 Contrast: 313 ml INDICATION The indication(s) include : unstable angina . CSHA Clinical Frailty Scale CSHA Clinical Frailty Scale: Well Heart Failure Heart Failure: No PROCEDURE NARRATIVE After explaining the risks, benefits and alternative options, informed consent was obtained from peter ent. Patient was brought to the cardiac [facility] and right wrist was prepped and draped in the usual fashion after confirming a positive modified Gage's test. Arterial access was obtained in the righ t radial artery and a 6 [place] sheath was inserted. 6 [place] Ojel and 6 [place] JR4 catheters were used to perform selective angiography of the left and right coronary arteries. 6 [place] pigtail cath eter was used to perform left ventriculography. There were no immediate complications. The following findings were noted. FINDINGS 1. Hemodynamics: Left ventricular end-diastolic pressure of 21 mmHg consistent with acute on chronic diastolic heart failure. No pullback gradient across the aortic valve. 2. Left ventriculography: Normal left ventricle systolic function with ejection fraction estimated at 60-65%. No significant mitral regurgitation seen. 3. Coronary angiography: a. The left main coronary artery arose from the left sinus of Valsalva, gave rise to the left anteri or descending and left circumflex arteries and showed 20% stenosis in the midsegment. b. The left anterior descending artery showed 90% stenosis in the midsegment and 90% stenosis in the very distal/apical segment. The second diagonal branch which is a small-caliber vessel showed 90% st enosis. c. The left circumflex artery showed 70% stenosis in the proximal to midsegment. The obtuse marginal branch which is a medium caliber vessel showed 90% stenosis in the proximal segment and moderate dif fuse disease distally. d. The right coronary artery was a large and dominant vessel arising from the right sinus of Valsalv a that showed 30% stenosis in the midsegment. The posterior descending branch showed severe diffuse d isease distally. INTERVENTION The left main coronary artery was engaged with a 6 [place] XB 3.5 guide catheter and the stenosis in t he left anterior descending artery was crossed with a 0.014 inch [employer] Pro water guidewire. This was predilated with a 2.5 x 20 mm euphora balloon. Initial attempts to advance stent into this segment wa s unsuccessful secondary to calcification and tortuosity. With the help of backup support from a 6 Fr ench guide liner inner catheter, a 2.75 x 38 mm resolute daphnie stent was successfully deployed in the proximal to midsegment of the vessel. Follow-up angiography showed resolution of the stenosis to 0% w ith JUSTIN-3 distal flow. Subsequently, the stenosis in the left circumflex artery and the obtuse stone nal branch were crossed with a 0.014 inch [employer] Pro water guidewire. These with predilated with the 2 .5 x 20 mm euphora balloon followed by a 2.5 x 15 mm noncompliant NC euphora balloon. The proximal to midsegment of the left circumflex artery and the proximal segment of the obtuse marginal branch were then treated with a 2.5 x 22 mm resolute daphnie drug-eluting stent. Follow-up angiorrhaphy showed reso lution of the stenosis to 0% with JUSTIN-3 distal flow. Patient tolerated the procedure well. Hemostasi s was achieved using TR band. There were no immediate complications. JUSTIN Flow JUSTIN Flow (Pre-Intervention): JUSTIN-3 JUSTIN Flow (Post-Intervention): JUSTIN-3 Conclusion 1. Severe two-vessel coronary artery disease involving left anterior descending and left circumflex arteries. 2. Elevated left ventricle end-diastolic pressure consistent with acute on chronic diastolic heart f ailure. 3. Normal left ventricle systolic function with ejection fraction estimated at 60-65%. 4. Successful PCI/drug eluting stent placement to the left anterior descending artery, left circumfl ex artery/obtuse marginal branch. Recommendations 1. Aspirin 325 mg daily 2. Effient 10 mg daily for preferably one year 3. Cardiovascular risk factor modification Signed by : Obi Mcclellan, Electronically Approved : 11/12/2018 12:08:04
[2018-11-12] MEDS: GABAPENTIN 300 MG CAPSULE. PO SCH ×2 (13:56→20:58)
[2018-11-12] MEDS: IV 1/2 NORMAL SALINE 1,000 ML IV SCH ×2 (14:17→20:58)
--- NOTE | 2018-11-12 14:22 | NUR ---
SS following for discharge planning. SS reviewed pt chart. Pt is from home. No discharge needs noted at this time. SS will continue to follow for discharge planning.
--- NOTE | 2018-11-12 16:26 | NUR ---
Wound Care: Consult to eval and treat wound to anterior R knee from prosthetic. Pt states he has been treating wound at home for the last 2 months with leftover silvadene and aquacel AG from previous wounds. Wound clean, and CARLOS. Cleansed and measured, pictures present on chart from admission. Covered with aquacel AG and foam dressing. Discolored, intact callus to distal RBKA, skin prep applied and covered with foam dressing for protection. No other wounds noted on head to toe inspection. Pt able to self turn in bed. Educated on PU prevention. Plan to follow up 11/19/18
--- NOTE | 2018-11-12 18:35 | NUR ---
TR band removed 1730. R radial site is C/D/I. Bandaid placed at site after cleaning. Arm board still in place.
[2018-11-12] MEDS: METOPROLOL TART IMMED RELEASE 25 MG TABLET. PO SCH (20:59)
[2018-11-12] MEDS ORDERED: INSULIN GLARGINE 300 UNITS/3 ML INSULN.PEN. SQ SCH (21:00)
[2018-11-12] MEDS ORDERED: ATORVASTATIN CALCIUM 20 MG TABLET PO SCH (21:00)
[2018-11-12 23:09] LABS: HEMOGLOBIN A1C 5.7 % (4.8-5.6)
[2018-11-13 03:15] VITALS: BP 94/50
--- NOTE | 2018-11-13 03:33 | NUR ---
Patient IV was alarming. RN went in room and patient was vomiting. Paged [employer] Person HIMS. Dr Back returned call and gave order for Waldo.
[2018-11-13] MEDS ORDERED: ONDANSETRON PF 4 MG/2 ML VIAL. IV PRN (03:45)
[2018-11-13] MEDS ORDERED: PROCHLORPERAZINE 10 MG/2 ML VIAL. IV PRN (05:30)
[2018-11-13 07:23] VITALS: BP 109/54
--- NOTE | 2018-11-13 07:58 | PDOC ---
PROGRESS NOTES Chief Complaint Chief Complaint A/P: Syncope - likely 2/2 hypoglycemia, however he is high cardiac risk with wellen pattern on his EKG and strong family h/o CAD as well as DM poorly controlled. CT head negative NSTEMI - looks to be a wellens pattern concerning for LAD disease s/p 2 x ARNOLD CAD - s/p intervention 11/12/18 successful ARNOLD x 2 to LAD and L circumflex Hypothermia - resolved after rewarming protocol. Leukocytosis - no clear sign of infection, though he meets SIRS criteria IDDM with poor diet habits - needs A1c repeated Right knee patellar healed wound with callus - no induration, or signs of infection. Uses prosthetic leg. Will consult wound care FEN - Cardiac ADA PPX - Heparin GTT FULL CODE DISPO - inpatient for what is high risk CAD, likely 2 midnights, History of Present Illness History of Present Illness Patient is a 42 year old male w/ PMHx DM1, s/p R BKA who presents after syncopal episode via EMS. States this evening he was getting up to get something to eat and became very lightheaded and nauseous and passed out. He was unsure if he hit his head when he came to easily on the floor. He decided to call EMS to be evaluated in the hospital. He denies any pain at this time. Patient also denies any chest pain, shortness of breath, nausea, or vomiting. At 6PM and gave himself 7U of novolog. He then prepared some snack close to 8 PM and gave himself his 26U of levemir but sitting before he was getting ready to eat his snack he became diaphoretic and find himself that he passed out sitting on his recliner. He was shaky upon waking consistent with prior hypoglycemic episodes, so he ate 2 glucose tabs. BG was 131 but that was after the glucose tabs. When he arrived in ED he was mildly hypothermic at 93F. He has significant family hx of premature heart CAD with mother having HI in her 50s, Father at a young age as well and his cousin having SCA in his 40s and maternal grandfather dying of CAD. No hx of bleeding or problems With his high risk CAD and wellens EKG went urgently to oil laboratory analyst where ARNOLD to LAD and L circumflex artery were deployed with relief of sx. Overnight he vomited x1 at 3:00am. Glucose 88. He feels somewhat anxious this morning. Plan: added ativan for anxiety Post-cath f/u Wound care Discharge planning per cardiology Vitals Vitals Vital Signs Date Time Temp Pulse Resp B/P (MAP) Pulse Ox O2 Delivery O2 Flow Rate FiO2 11/13/18 07:23 98.1 88 18 109/54 (72) 95 Room Air 98.1 11/12/18 20:00 2.0 Physical Exam General: Alert, Oriented X3, Cooperative, No acute distress Heart: Regular rate, Normal S1, Normal S2, Other (TIMI 2/6 diastolic murmur) Lungs: Clear, Other Abdomen: Normal bowel sounds, Soft, No tenderness, No hepatosplenomegaly, No masses Extremities: No clubbing, No cyanosis, No edema, Normal pulses, No tenderness/ swelling, Other (r BKA ulcer at knee) Skin: No rashes, No significant lesion, Other (Right knee ulcer) Labs LABS Laboratory Tests Test 11/12/18 08:40 11/12/18 11:36 11/12/18 17:08 11/12/18 20:49 Troponin I Quantitative 0.093 ng/mL (0.000-0.055) Glucose (Fingerstick) 136 mg/dL (70-99) 152 mg/dL (70-99) 126 mg/dL (70-99) Test 11/13/18 07:11 Glucose (Fingerstick) 88 mg/dL (70-99) Assessment and Plan Assessmemt and Plan Problems Medical Problems: (1) Abnormal EKG Status: Acute (2) Hypothermia Status: Acute (3) Lactic acidosis Status: Acute (4) Syncope Status: Acute Comment Review of Relevant I have reviewed the following items bobby (where applicable) has been applied. Labs Laboratory Tests Test 11/12/18 01:40 11/12/18 02:02 11/12/18 02:59 11/12/18 05:00 White Blood Count 13.1 x10^3/uL (4.0-11.0) Red Blood Count 4.39 x10^6/uL (4.30-5.70) Hemoglobin 13.4 g/dL (13.0-17.5) Hematocrit 39.3 % (39.0-53.0) Mean Corpuscular Volume 90 fL (79-100) Mean Corpuscular Hemoglobin 30 pg (25-35) Mean Corpuscular Hemoglobin Concent 34 g/dL (31-37) Red Cell Distribution Width 12.7 % (11.5-14.5) Platelet Count 229 x10^3/uL (140-400) Neutrophils (%) (Auto) 93 % (31-73) Lymphocytes (%) (Auto) 5 % (24-48) Monocytes (%) (Auto) 2 % (0-9) Eosinophils (%) (Auto) 0 % (0-3) Basophils (%) (Auto) 0 % (0-3) Neutrophils # (Auto) 12.2 x10^3uL (1.8-7.7) Lymphocytes # (Auto) 0.6 x10^3/uL (1.0-4.8) Monocytes # (Auto) 0.2 x10^3/uL (0.0-1.1) Eosinophils # (Auto) 0.0 x10^3/uL (0.0-0.7) Basophils # (Auto) 0.0 x10^3/uL (0.0-0.2) Segmented Neutrophils % 93 % (35-66) Band Neutrophils % 4 % (0-9) Lymphocytes % 2 % (24-48) Monocytes % 1 % (0-10) Toxic Granulation Slight Platelet Estimate Adequate (ADEQUATE) Prothrombin Time 12.6 SEC (11.7-14.0) Prothromb Time International Ratio 1.0 (0.8-1.1) Activated Partial Thromboplast Time 35 SEC (24-38) Sodium Level 144 mmol/L (136-145) Potassium Level 3.7 mmol/L (3.5-5.1) Chloride Level 105 mmol/L (98-107) Carbon Dioxide Level 27 mmol/L (21-32) Anion Gap 12 (6-14) Blood Urea Nitrogen 23 mg/dL (8-26) Creatinine 0.9 mg/dL (0.7-1.3) Estimated GFR (Cockcroft-Gault) 92.5 BUN/Creatinine Ratio 26 (6-20) Glucose Level 176 mg/dL (70-99) Hemoglobin A1c 5.7 % (4.8-5.6) Lactic Acid Level 2.1 mmol/L (0.4-2.0) 1.8 mmol/L (0.4-2.0) Calcium Level 9.2 mg/dL (8.5-10.1) Magnesium Level 2.0 mg/dL (1.8-2.4) Total Bilirubin 0.2 mg/dL (0.2-1.0) Aspartate Amino Transf (AST/SGOT) 25 U/L (15-37) Alanine Aminotransferase (ALT/SGPT) 30 U/L (16-63) Alkaline Phosphatase 70 U/L (46-116) Creatine Kinase 106 U/L (39-308) Creatine Kinase MB (Mass) 2.5 ng/mL (0.0-3.6) Creatine Kinase MB Relative Index 2.4 % (0-4) Troponin I Quantitative < 0.017 ng/mL (0.000-0.055) < 0.017 ng/mL (0.000-0.055) WJ-Csn-A-Type Natriuretic Peptide 351 pg/mL (0-124) Total Protein 7.9 g/dL (6.4-8.2) Albumin 4.0 g/dL (3.4-5.0) Albumin/Globulin Ratio 1.0 (1.0-1.7) Triglycerides Level 38 mg/dL (0-150) Cholesterol Level 144 mg/dL (0-200) LDL Cholesterol, Calculated 100 mg/dL (0-100) VLDL Cholesterol, Calculated 8 mg/dL (0-40) Non-HDL Cholesterol Calculated 108 mg/dL (0-129) HDL Cholesterol 36 mg/dL (40-60) Cholesterol/HDL Ratio 4.0 Lipase 73 U/L (73-393) Thyroid Stimulating Hormone (TSH) 0.532 uIU/mL (0.358-3.74) Glucose (Fingerstick) 201 mg/dL (70-99) Urine Collection Type U cath Urine Color Yellow Urine Clarity Clear Urine pH 5.0 Urine Specific [place] 1.020 Urine Protein 100 mg/dL (NEG-TRACE) Urine Glucose (UA) Negative mg/dL (NEG) Urine Ketones (Stick) Negative mg/dL (NEG) Urine Blood Trace (NEG) Urine Nitrite Negative (NEG) Urine Bilirubin Negative (NEG) Urine Urobilinogen Dipstick 0.2 mg/dL (0.2 mg/dL) Urine Leukocyte Esterase Negative (NEG) Urine RBC 0 /HPF (0-2) Urine WBC 1-4 /HPF (0-4) Urine Squamous Epithelial Cells Occ /LPF Urine Bacteria 0 /HPF (0-FEW) Urine Hyaline Casts Few /HPF Urine Mucus Mod /LPF Test 11/12/18 07:08 11/12/18 08:40 11/12/18 11:36 11/12/18 17:08 Glucose (Fingerstick) 180 mg/dL (70-99) 136 mg/dL (70-99) 152 mg/dL (70-99) Troponin I Quantitative 0.093 ng/mL (0.000-0.055) Test 11/12/18 20:49 11/13/18 07:11 Glucose (Fingerstick) 126 mg/dL (70-99) 88 mg/dL (70-99) Laboratory Tests Test 11/12/18 08:40 11/12/18 11:36 11/12/18 17:08 11/12/18 20:49 Troponin I Quantitative 0.093 ng/mL (0.000-0.055) Glucose (Fingerstick) 136 mg/dL (70-99) 152 mg/dL (70-99) 126 mg/dL (70-99) Test 11/13/18 07:11 Glucose (Fingerstick) 88 mg/dL (70-99) Microbiology 11/12/18 Blood Culture - Preliminary, Resulted NO GROWTH AFTER 1 DAY Medications Current Medications Sodium Chloride 1,000 ml @ 1,000 mls/hr 1X ONCE IV Last administered on at 02:08; Start 11/12/18 at 01:45; Stop 11/12/18 at 02:44; Status DC Heparin Sodium/ Dextrose 500 ml @ 0 mls/hr CONT PRN IV SEE I/O RECORD Last administered on 11/12/18at 03:11; Start 11/12/18 at 02:30 Heparin Sodium (Porcine) (Heparin Sodium) 4,000 unit 1X ONCE IV Last administered on 11/12/18at 03:04; Start 11/12/18 at 02:30; Stop 11/12/18 at 02:31; Status DC Ondansetron HCl (Zofran) 4 mg PRN Q8HRS PRN IV NAUSEA/VOMITING Last administered on 11/12/18at 15:24; Start 11/12/18 at 02:30; Stop 11/13/18 at 02:29; Status DC Fentanyl Citrate (Fentanyl 2ml Vial) 50 mcg PRN Q2HR PRN IV PAIN; Start at 02:30; Stop 11/13/18 at 02:29; Status DC Insulin Human Lispro (HumaLOG) 0-5 UNITS TIDWMEALS SQ ; Start 11/12/18 at 08:00; Stop 11/12/18 at 17:08; Status DC Dextrose (Dextrose 50%-Water Syringe) 12.5 gm PRN Q15MIN PRN IV SEE COMMENTS; Start 11/12/18 at 02:30; Stop 11/12/18 at 17:08; Status DC Sodium Chloride 1,000 ml @ 1,000 mls/hr 1X ONCE IV Last administered on at 03:55; Start 11/12/18 at 04:00; Stop 11/12/18 at 04:00; Status DC Piperacillin Sod/ Tazobactam Sod 4.5 gm/Sodium Chloride 100 ml @ 200 mls/hr 1X ONCE IV Last administered on 11/12/18at 04:33; Start 11/12/18 at 04:15; Stop 11/12/18 at 04:44; Status DC Sodium Chloride 1,000 ml @ 1,000 mls/hr 1X ONCE IV Last administered on at 04:32; Start 11/12/18 at 04:00; Stop 11/12/18 at 04:59; Status DC Sodium Chloride 500 ml @ 500 mls/hr 1X ONCE IV ; Start 11/12/18 at 04:00; Stop 11/12/18 at 04:59; Status DC Heparin Sodium (Porcine) (Heparin Sodium) 1,700 unit PRN Q6HRS PRN IV FOR UFH LEVEL LESS THAN 0.2; Start 11/12/18 at 07:45 Aspirin (Ecotrin) 325 mg 1X ONCE PO ; Start 11/12/18 at 08:30; Stop 11/12/18 at 08:31; Status DC Lidocaine HCl (Xylocaine-Mpf 1% 2ml Vial) 2 ml STK-MED ONCE .ROUTE ; Start at 08:58; Stop 11/12/18 at 08:59; Status DC Iohexol (Omnipaque 300 Mg/ml) 100 ml STK-MED ONCE .ROUTE ; Start 11/12/18 at 08: 58; Stop 11/12/18 at 08:59; Status DC Heparin Sodium/ Sodium Chloride 1,000 ml @ As Directed STK-MED ONCE .ROUTE ; Start 11/12/18 at 08:59; Stop 11/12/18 at 09:00; Status DC Fentanyl Citrate (Fentanyl 2ml Vial) 100 mcg STK-MED ONCE .ROUTE ; Start at 09:31; Stop 11/12/18 at 09:32; Status DC Midazolam HCl (Versed) 2 mg STK-MED ONCE .ROUTE ; Start 11/12/18 at 09:31; Stop 11/12/18 at 09:32; Status DC Heparin Sodium (Porcine) (Heparin Sodium) 10,000 unit STK-MED ONCE .ROUTE ; Start 11/12/18 at 09:32; Stop 11/12/18 at 09:33; Status DC Verapamil HCl (Verapamil) 5 mg STK-MED ONCE .ROUTE ; Start 11/12/18 at 09:32; Stop 11/12/18 at 09:33; Status DC Nitroglycerin (Nitroglycerin) 200 mcg STK-MED ONCE .ROUTE ; Start 11/12/18 at 09: 32; Stop 11/12/18 at 09:33; Status DC Bivalirudin (Angiomax) 250 mg STK-MED ONCE IV ; Start 11/12/18 at 10:14; Stop 11/12/18 at 10:15; Status DC Iohexol (Omnipaque 300 Mg/ml) 100 ml STK-MED ONCE .ROUTE ; Start 11/12/18 at 10: 14; Stop 11/12/18 at 10:15; Status DC Nitroglycerin (Nitroglycerin) 200 mcg 1X ONCE IART Last administered on at 11:16; Start 11/12/18 at 10:30; Stop 11/12/18 at 10:43; Status DC Verapamil HCl (Verapamil) 2.5 mg 1X ONCE IART Last administered on 11/12/18at 11 :18; Start 11/12/18 at 10:30; Stop 11/12/18 at 10:43; Status DC Heparin Sodium (Porcine) (Heparin Sodium) 2,500 unit 1X ONCE IART Last administered on 11/12/18at 11:19; Start 11/12/18 at 10:30; Stop 11/12/18 at 10:43; Status DC Heparin Sodium/ Sodium Chloride (HEPARIN for ARTERIAL LINE FLUSH) 1,000 unit 1X ONCE IART Last administered on 11/12/18 11:15; Start 11/12/18 at 10:30; Stop 11/12/18 at 10:43; Status DC Heparin Sodium/ Sodium Chloride (HEPARIN for ARTERIAL LINE FLUSH) 1,000 unit 1X ONCE IART Last administered on 11/12/18 11:15; Start 11/12/18 at 10:30; Stop 11/12/18 at 10:43; Status DC Midazolam HCl (Versed) 2 mg 1X ONCE IV Last administered on 11/12/18 11:18; Start 11/12/18 at 10:30; Stop 11/12/18 at 10:43; Status DC Fentanyl Citrate (Fentanyl 2ml Vial) 50 mcg 1X ONCE IV Last administered on 11:18; Start 11/12/18 at 10:30; Stop 11/12/18 at 10:43; Status DC Iohexol (Omnipaque 300 Mg/ml) 100 ml 1X ONCE IART Last administered on 11:15; Start 11/12/18 at 10:30; Stop 11/12/18 at 10:43; Status DC Bivalirudin (Angiomax) 250 mg 1X ONCE IV Last administered on 11/12/18 11:17; Start 11/12/18 at 10:30; Stop 11/12/18 at 10:43; Status DC Lidocaine HCl (Xylocaine-Mpf 1% 2ml Vial) 1 ml 1X ONCE INJ Last administered on 11/12/18 11:17; Start 11/12/18 at 10:30; Stop 11/12/18 at 10:43; Status DC Info (CONTRAST GIVEN -- Rx MONITORING) 1 each PRN DAILY PRN MC SEE COMMENTS; Start 11/12/18 at 10:45; Stop 11/14/18 at 10:44 Aspirin (Sarah Aspirin) 325 mg STK-MED ONCE .ROUTE ; Start 11/12/18 at 11:03; Stop 11/12/18 at 11:04; Status DC Prasugrel (Effient) 10 mg STK-MED ONCE .ROUTE ; Start 11/12/18 at 11:03; Stop 11/12/18 at 11:04; Status DC Prasugrel (Effient) 60 mg 1X ONCE PO Last administered on 11/12/18 11:16; Start 11/12/18 at 11:15; Stop 11/12/18 at 11:16; Status DC Aspirin (Sarah Aspirin) 325 mg 1X ONCE PO Last administered on 11/12/18 11:16 ; Start 11/12/18 at 11:15; Stop 11/12/18 at 11:16; Status DC Sodium Chloride 1,000 ml @ 100 mls/hr Q10H IV Last administered on 11/12/18 20 :58; Start 11/12/18 at 12:00 Aspirin (Ecotrin) 325 mg DAILYWBKFT PO ; Start 11/13/18 at 08:00 Prasugrel (Effient) 10 mg DAILYWBKFT PO ; Start 11/13/18 at 08:00 Metoprolol Tartrate (Lopressor) 12.5 mg BID PO Last administered on 11/12/18 20 :59; Start 11/12/18 at 21:00 Atorvastatin Calcium (Lipitor) 40 mg QHS PO Last administered on 11/12/18 20:58 ; Start 11/12/18 at 21:00 Acetaminophen (Tylenol) 650 mg PRN Q6HRS PRN PO MILD PAIN / TEMP; Start at 11:30 Nitroglycerin (Nitrostat) 0.4 mg PRN Q5MIN PRN SL CHEST PAIN; Start 11/12/18 at 11:30 Gabapentin (Neurontin) 300 mg TID PO Last administered on 11/12/18 20:58; Start 11/12/18 at 14:00 Insulin Human Lispro (HumaLOG) 5 units TIDWMEALS SQ Last administered on 17:39; Start 11/12/18 at 17:00 Insulin Glargine (Lantus) 18 units QHS SQ Last administered on 11/12/18 21:10; Start 11/12/18 at 21:00 Insulin Human Lispro (HumaLOG) 0-5 UNITS TIDWMEALS SQ Last administered on 17:40; Start 11/12/18 at 17:00 Dextrose (Dextrose 50%-Water Syringe) 12.5 gm PRN Q15MIN PRN IV SEE COMMENTS; Start 11/12/18 at 13:30 Ondansetron HCl (Zofran) 4 mg PRN Q4HRS PRN IV NAUSEA/VOMITING Last administered on 11/13/18at 03:46; Start 11/13/18 at 03:45; Stop 11/13/18 at 05:25; Status DC Prochlorperazine Edisylate (Compazine) 10 mg PRN Q6HRS PRN IV NAUSEA/VOMITING Last administered on 11/13/18at 05:55; Start 11/13/18 at 05:30 Active Scripts Active Keflex (Cephalexin) 250 Mg Capsule 1 Cap PO QID 14 Days Doxycycline Hyclate 100 Mg Capsule 1 Cap PO BID 14 Days Levemir (Insulin Detemir) 100 Unit/1 Ml Vial 24 Unit SQ QHS Novolog (Insulin Aspart) 100 Unit/1 Ml Vial 100 Unit SQ DIRECTED sliding scale per patient's primary care physician Augmentin 875-125 Tablet (Amoxicillin/Potassium Clav) 1 Each Tablet 1 Tab PO BID Reported Gabapentin 100 Mg Capsule 100 Mg PO TID Vitals/I & O Vital Sign - Last 24 Hours 11/12/18 11/12/18 11/12/18 11/12/18 08:00 11:18 11:18 11:23 Pulse 82 82 Resp 15 15 Pulse Ox 99 97 O2 Delivery Room Air Nasal Cannula Nasal Cannula O2 Flow Rate 2.0 2.0 11/12/18 11/12/18 11/12/18 11/12/18 11:30 11:45 11:48 12:00 Pulse 88 82 93 Resp 16 B/P (MAP) 138/75 (96) 150/82 (104) Pulse Ox 99 99 100 99 O2 Delivery Room Air Room Air Room Air Room Air 11/12/18 11/12/18 11/12/18 11/12/18 12:15 12:30 13:00 13:30 Pulse 91 87 87 86 B/P (MAP) 150/83 (105) 135/75 (95) 117/66 (83) 132/73 (92) Pulse Ox 100 99 99 99 O2 Delivery Room Air Room Air Room Air Room Air 11/12/18 11/12/18 11/12/18 11/12/18 14:00 15:45 19:30 20:00 Temp 98.2 98.2 Pulse 87 91 98 Resp 16 B/P (MAP) 138/80 (99) 144/79 (100) 145/84 (104) Pulse Ox 100 100 99 O2 Delivery Room Air Room Air Room Air Room Air O2 Flow Rate 2.0 11/12/18 11/12/18 11/13/18 11/13/18 20:59 22:25 03:15 07:23 Temp 97.9 97.9 98.1 97.9 97.9 98.1 Pulse 107 87 73 88 Resp 16 16 18 B/P (MAP) 145/84 139/86 (103) 94/50 (65) 109/54 (72) Pulse Ox 97 97 95 O2 Delivery Room Air Room Air Room Air Intake and Output 11/12/18 11/12/18 11/13/18 15:00 23:00 07:00 Intake Total 1200 ml Output Total 650 ml 475 ml 400 ml Balance -650 ml -475 ml 800 ml LULU SOLIS MD Nov 13, 2018 07:58
[2018-11-13] MEDS ORDERED: ASPIRIN ENTERIC COATED 325 MG TABLET.DR. PO SCH (08:00)
[2018-11-13] MEDS ORDERED: PRASUGREL 10 MG TABLET. PO SCH (08:00)
[2018-11-13] MEDS: INSULIN LISPRO 300 UNITS/3 ML INSULN.PEN. SQ SCH ×4 (08:00→12:30)
[2018-11-13] MEDS: GABAPENTIN 300 MG CAPSULE. PO SCH ×2 (09:14→14:13)
[2018-11-13] MEDS: METOPROLOL TART IMMED RELEASE 25 MG TABLET. PO SCH (09:14)
[2018-11-13] MEDS ORDERED: LORazepam 0.5 MG TABLET PO PRN (11:15)
[2018-11-13 11:30] VITALS: BP 121/67
[2018-11-13] MEDS ORDERED: ASPI325T11 PO (12:24)
[2018-11-13] MEDS ORDERED: LORA0.5T96 PO (12:24)
[2018-11-13] MEDS ORDERED: METO25TA4 PO (12:24)
[2018-11-13] MEDS ORDERED: PRAS10TA9 PO (12:24)
[2018-11-13] MEDS ORDERED: ATOR20TA58 PO (12:24)
[2018-11-13] MEDS ORDERED: NITR0.4T SL (12:24)
--- NOTE | 2018-11-13 12:30 | PDOC3 ---
Discharge Summary Visit Information Date of Admission: Nov 12, 2018 Date of Discharge: Nov 13, 2018 Admitting Diagnosis: Syncope, NSTEMI Final Diagnosis Problems Medical Problems: (1) Abnormal EKG Status: Acute (2) Hypothermia Status: Acute (3) Lactic acidosis Status: Acute (4) Syncope Status: Acute Brief Hospital Course Allergies Allergies Coded Allergies Type Severity Reaction Last Updated Verified No Known Drug Allergies 07/10/17 No Vital Signs Vital Signs Date Time Temp Pulse Resp B/P (MAP) Pulse Ox O2 Delivery O2 Flow Rate FiO2 11/13/18 11:30 98.4 83 18 121/67 (85) 97 Room Air 98.4 11/12/18 20:00 2.0 Lab Results Laboratory Tests Test 11/12/18 01:40 11/12/18 02:02 11/12/18 02:59 11/12/18 05:00 White Blood Count 13.1 x10^3/uL (4.0-11.0) Red Blood Count 4.39 x10^6/uL (4.30-5.70) Hemoglobin 13.4 g/dL (13.0-17.5) Hematocrit 39.3 % (39.0-53.0) Mean Corpuscular Volume 90 fL (79-100) Mean Corpuscular Hemoglobin 30 pg (25-35) Mean Corpuscular Hemoglobin Concent 34 g/dL (31-37) Red Cell Distribution Width 12.7 % (11.5-14.5) Platelet Count 229 x10^3/uL (140-400) Neutrophils (%) (Auto) 93 % (31-73) Lymphocytes (%) (Auto) 5 % (24-48) Monocytes (%) (Auto) 2 % (0-9) Eosinophils (%) (Auto) 0 % (0-3) Basophils (%) (Auto) 0 % (0-3) Neutrophils # (Auto) 12.2 x10^3uL (1.8-7.7) Lymphocytes # (Auto) 0.6 x10^3/uL (1.0-4.8) Monocytes # (Auto) 0.2 x10^3/uL (0.0-1.1) Eosinophils # (Auto) 0.0 x10^3/uL (0.0-0.7) Basophils # (Auto) 0.0 x10^3/uL (0.0-0.2) Segmented Neutrophils % 93 % (35-66) Band Neutrophils % 4 % (0-9) Lymphocytes % 2 % (24-48) Monocytes % 1 % (0-10) Toxic Granulation Slight Platelet Estimate Adequate (ADEQUATE) Prothrombin Time 12.6 SEC (11.7-14.0) Prothromb Time International Ratio 1.0 (0.8-1.1) Activated Partial Thromboplast Time 35 SEC (24-38) Sodium Level 144 mmol/L (136-145) Potassium Level 3.7 mmol/L (3.5-5.1) Chloride Level 105 mmol/L (98-107) Carbon Dioxide Level 27 mmol/L (21-32) Anion Gap 12 (6-14) Blood Urea Nitrogen 23 mg/dL (8-26) Creatinine 0.9 mg/dL (0.7-1.3) Estimated GFR (Cockcroft-Gault) 92.5 BUN/Creatinine Ratio 26 (6-20) Glucose Level 176 mg/dL (70-99) Hemoglobin A1c 5.7 % (4.8-5.6) Lactic Acid Level 2.1 mmol/L (0.4-2.0) 1.8 mmol/L (0.4-2.0) Calcium Level 9.2 mg/dL (8.5-10.1) Magnesium Level 2.0 mg/dL (1.8-2.4) Total Bilirubin 0.2 mg/dL (0.2-1.0) Aspartate Amino Transf (AST/SGOT) 25 U/L (15-37) Alanine Aminotransferase (ALT/SGPT) 30 U/L (16-63) Alkaline Phosphatase 70 U/L (46-116) Creatine Kinase 106 U/L (39-308) Creatine Kinase MB (Mass) 2.5 ng/mL (0.0-3.6) Creatine Kinase MB Relative Index 2.4 % (0-4) Troponin I Quantitative < 0.017 ng/mL (0.000-0.055) < 0.017 ng/mL (0.000-0.055) MA-Wkz-Q-Type Natriuretic Peptide 351 pg/mL (0-124) Total Protein 7.9 g/dL (6.4-8.2) Albumin 4.0 g/dL (3.4-5.0) Albumin/Globulin Ratio 1.0 (1.0-1.7) Triglycerides Level 38 mg/dL (0-150) Cholesterol Level 144 mg/dL (0-200) LDL Cholesterol, Calculated 100 mg/dL (0-100) VLDL Cholesterol, Calculated 8 mg/dL (0-40) Non-HDL Cholesterol Calculated 108 mg/dL (0-129) HDL Cholesterol 36 mg/dL (40-60) Cholesterol/HDL Ratio 4.0 Lipase 73 U/L (73-393) Thyroid Stimulating Hormone (TSH) 0.532 uIU/mL (0.358-3.74) Glucose (Fingerstick) 201 mg/dL (70-99) Urine Collection Type U cath Urine Color Yellow Urine Clarity Clear Urine pH 5.0 Urine Specific [place] 1.020 Urine Protein 100 mg/dL (NEG-TRACE) Urine Glucose (UA) Negative mg/dL (NEG) Urine Ketones (Stick) Negative mg/dL (NEG) Urine Blood Trace (NEG) Urine Nitrite Negative (NEG) Urine Bilirubin Negative (NEG) Urine Urobilinogen Dipstick 0.2 mg/dL (0.2 mg/dL) Urine Leukocyte Esterase Negative (NEG) Urine RBC 0 /HPF (0-2) Urine WBC 1-4 /HPF (0-4) Urine Squamous Epithelial Cells Occ /LPF Urine Bacteria 0 /HPF (0-FEW) Urine Hyaline Casts Few /HPF Urine Mucus Mod /LPF Test 11/12/18 07:08 11/12/18 08:40 11/12/18 11:36 11/12/18 17:08 Glucose (Fingerstick) 180 mg/dL (70-99) 136 mg/dL (70-99) 152 mg/dL (70-99) Troponin I Quantitative 0.093 ng/mL (0.000-0.055) Test 11/12/18 20:49 11/13/18 07:11 11/13/18 11:20 Glucose (Fingerstick) 126 mg/dL (70-99) 88 mg/dL (70-99) 112 mg/dL (70-99) Laboratory Tests Test 11/12/18 17:08 11/12/18 20:49 11/13/18 07:11 11/13/18 11:20 Glucose (Fingerstick) 152 mg/dL (70-99) 126 mg/dL (70-99) 88 mg/dL (70-99) 112 mg/dL (70-99) Brief Hospital Course Mr Skelton is a 42 year old male w/ PMHx DM1, s/p R BKA who presents after syncopal episode via EMS. States this evening he was getting up to get something to eat and became very lightheaded and nauseous and passed out. He was unsure if he hit his head when he came to easily on the floor. He decided to call EMS to be evaluated in the hospital. He denies any pain at this time. Patient also denies any chest pain, shortness of breath, nausea, or vomiting. At 6PM and gave himself 7U of novolog. He then prepared some snack close to 8 PM and gave himself his 26U of levemir but sitting before he was getting ready to eat his snack he became diaphoretic and find himself that he passed out sitting on his recliner. He was shaky upon waking consistent with prior hypoglycemic episodes, so he ate 2 glucose tabs. BG was 131 but that was after the glucose tabs. When he arrived in ED he was mildly hypothermic at 93F. He has significant family hx of premature heart CAD with mother having HI in her 50s, Father at a young age as well and his cousin having SCA in his 40s and maternal grandfather dying of CAD. 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 Overnight he vomited x1 at 3:00am. Glucose 88. He feels somewhat anxious this morning, relieved by lorazepam. Given strict instructions on medication compliance and cardiology follow up and to avoid heavy lifting or exertion for 1 week. A/P: Syncope - likely 2/2 hypoglycemia, however he is high cardiac risk with wellen pattern on his EKG and strong family h/o CAD as well as DM poorly controlled. CT head negative NSTEMI - looks to be a wellens pattern concerning for LAD disease s/p 2 x ARNOLD CAD - s/p intervention 11/12/18 successful ARNOLD x 2 to LAD and L circumflex Hypothermia - resolved after rewarming protocol. Leukocytosis - no clear sign of infection, though he meets SIRS criteria - likely 2/2 NSTEMI IDDM with poor diet habits - needs A1c repeated Right knee patellar healed wound with callus - no induration, or signs of infection. Uses prosthetic leg. Will consult wound care outpatient f/u Plan: added ativan for anxiety Post-cath f/u Wound care Discharge planning per cardiology Greater than 30 minutes spent on discharge planning Discharge Information Condition at Discharge: Improved Follow Up: Weeks (2) Disposition/Orders: D/C to Home Scheduled Aspirin (Aspirin Ec) 325 Mg Tablet.dr, 325 MG PO [id number] for CAD for 30 Days , #30 Prescribed by: LULU SOLIS MD on 11/13/18 1224 Atorvastatin Calcium (Atorvastatin Calcium) 20 Mg Tablet, 20 MG PO QHS for CAD for 30 Days, #30 Ref 11 Prescribed by: LULU SOLIS MD on 11/13/18 1224 Gabapentin (Gabapentin) 100 Mg Capsule, 100 MG PO TID for neuropathy, (Reported) Entered as Reported by: JONO FLORES RN on 11/12/18 7197 Last Action: Converted on 11/12/181328 by LULU SOLIS MD Insulin Aspart (Novolog) 100 Unit/1 Ml Vial, 100 UNIT SQ as directed, #1 sliding scale per patient's primary care physician Prescribed by: FLORECITA JOYNER on 09/22/171957 Last Action: Converted on 11/12/181328 by LULU SOLIS MD Insulin Detemir (Levemir) 100 Unit/1 Ml Vial, 24 UNIT SQ QHS, #1 Prescribed by: FLORECITA JOYNER on 09/22/171957 Last Action: Converted on 11/12/181328 by LULU SOLIS MD Metoprolol Tartrate (Metoprolol Tartrate) 25 Mg Tablet, 12.5 MG PO BID for CAD for 30 Days, #30 Ref 11 Prescribed by: LULU SOLIS MD on 11/13/18 1224 Prasugrel Hcl (Effient) 10 Mg Tablet, 10 MG PO [id number] for CAD high risk stent for 30 Days, #30 Ref 11 Prescribed by: LULU SOLIS MD on 11/13/18 1224 Scheduled PRN Lorazepam (Ativan) 0.5 Mg Tablet, 0.5 MG PO PRN Q8HRS PRN for ANXIETY / AGITATION for 6 Days, #18 Prescribed by: LULU SOLIS MD on 11/13/18 1224 Nitroglycerin (Nitrostat) 0.4 Mg Tab.subl, 0.4 MG SL PRN Q5MIN PRN for CHEST PAIN for 30 Days, #9 Ref 11 Prescribed by: LULU SOLIS MD on 11/13/18 1224 Discontinued Medications Amoxicillin/Potassium Clav (Augmentin 875-125 Tablet) 1 Each Tablet, 1 TAB PO BID, #20 Prescribed by: NATALI EDWARDS APRN on 01/16/171953 Last Action: HELD on 11/12/181328 by LULU SOLIS MD Cephalexin (Keflex) 250 Mg Capsule, 1 CAP PO QID for 14 Days, #56 Prescribed by: FLORECITA JOYNER on 09/22/171957 Last Action: HELD on 11/12/181328 by LULU SOLIS MD Doxycycline Hyclate (Doxycycline Hyclate) 100 Mg Capsule, 1 CAP PO BID for 14 Days, #28 Prescribed by: FLORECITA JOYNER on 09/22/171957 Last Action: HELD on 11/12/181328 by MD WILL ROMO CHRISTOPHER S MD Nov 13, 2018 12:30
[2018-11-13 13:09] LABS: BASO % 0 % (0-3); EOS % 0 % (0-3); HEMATOCRIT 34.7 % (39.0-53.0); LYMPH # 1.3 x10^3/uL (1.0-4.8); LYMPH % 13 % (24-48); MEAN CORPUSCULAR HEMOGLOBIN 31 pg (25-35); MEAN CORPUSCULAR HGB CONC 35 g/dL (31-37); MEAN CORPUSCULAR VOLUME 90 fL (79-100); MONO # 0.3 x10^3/uL (0.0-1.1); MONO % 3 % (0-9); NEUT # 7.8 x10^3uL (1.8-7.7); NEUT % 83 % (31-73); PLATELET COUNT 233 x10^3/uL (140-400); RED BLOOD COUNT 3.87 x10^6/uL (4.30-5.70); RED CELL DISTRIBUTION WIDTH 12.8 % (11.5-14.5); WHITE BLOOD COUNT 9.4 x10^3/uL (4.0-11.0)
[2018-11-13 13:38] LABS: ALBUMIN 3.1 g/dL (3.4-5.0); CALCIUM 8.6 mg/dL (8.5-10.1); CREATININE 0.9 mg/dL (0.7-1.3); GFR 92.5; POTASSIUM 3.5 mmol/L (3.5-5.1)
[2018-11-13 14:57] VITALS: BP 120/65
[2018-11-13] MEDS ORDERED: POTASSIUM CHLORIDE 20 MEQ TABLET.ER. PO ONE (16:00)
--- NOTE | 2018-11-13 16:02 | NUR ---
Discharge instructions reviewed with patient. Patient verbalizes understading. Patient accompanied by parents.
== END 2018-11-13 16:03 | disposition home or self-care (01) | DRG 246 ==
LOC: ER 01:32 → 2 SOUTH 02:20
PROVIDERS: ADMIT Internal Medicine; ATTEND Internal Medicine
PROC: 027235Z Dilation of Coronary Artery, Three Arteries with Two Drug-eluting Intraluminal Devices, Percutaneous Approach (ICD-10-PCS; principal; 2018-11-12)
PROC: 4A023N7 Measurement of Cardiac Sampling and Pressure, Left Heart, Percutaneous Approach (ICD-10-PCS; 2018-11-12)
PROC: B2111ZZ Fluoroscopy of Multiple Coronary Arteries using Low Osmolar Contrast (ICD-10-PCS; 2018-11-12)
PROC: B2151ZZ Fluoroscopy of Left Heart using Low Osmolar Contrast (ICD-10-PCS; 2018-11-12)
DX: I21.4 Non-ST elevation (NSTEMI) myocardial infarction (principal); I50.33 Acute on chronic diastolic (congestive) heart failure; R68.0 Hypothermia, not associated with low environmental temperature; I10 Essential (primary) hypertension; D72.829 Elevated white blood cell count, unspecified; J45.909 Unspecified asthma, uncomplicated; M19.90 Unspecified osteoarthritis, unspecified site; E10.42 Type 1 diabetes mellitus with diabetic polyneuropathy; I25.10 Atherosclerotic heart disease of native coronary artery without angina pectoris; E10.649 Type 1 diabetes mellitus with hypoglycemia without coma; Z89.511 Acquired absence of right leg below knee; Z79.4 Long term (current) use of insulin; Z82.49 Family history of ischemic heart disease and other diseases of the circulatory system; Z97.13 Presence of artificial right leg (complete) (partial)
CPT/HCPCS: 36415; 70450; 71045; 80053; 80061; 80069; 81001; 82553; 82962; 83036; 83605; 83690; 83735; 83880; 84443; 84484; 85007; 85025; 85610; 85730; 87040; 92921; 92928; 93005; 93306; 93458; 96361; 96365; 96376; 99152; 99153; C1725; C1769; C1874; C1887; C1892; J0583; J0780; J1644; J1815; J2250; J2405; J2543; J3010; J3490; J7030; Q9967; 99291-25